=== PATIENT | male | born 1955 | race African-American/Black ===

== ENCOUNTER → 2021-07-24 | Outpatient (REF) | payer SELFPAY | END | disposition home or self-care (01) | LOC: OLS.AHA 04:22 | PROVIDERS: Referring Provider Family Medicine; Visit Provider Family Medicine | DX: E72.20 Disorder of urea cycle metabolism, unspecified (principal) | CPT/HCPCS: 82140 ==

== ENCOUNTER → 2021-10-23 | Outpatient (REF) | payer SELFPAY | END | disposition home or self-care (01) | LOC: OLS.AHA 04:22 | PROVIDERS: Visit Provider Family Medicine | DX: E72.20 Disorder of urea cycle metabolism, unspecified (principal) | CPT/HCPCS: 82140 ==

== ENCOUNTER 2023-12-25 12:55 | Inpatient (IN) | payer MEDICAID, SELFPAY ==
[2023-12-25] VITALS (10 sets, daily range): BP systolic 127–168; BP diastolic 70–100; PULSE 50–61; RESP 8–16; TEMP 35–36.6; O2SAT 92–100; BMI 24.3; BMI 23.7; BMI 21.7
--- NOTE | 2023-12-25 13:02 | ED.RN ---
DR WALL AT BEDSIDE TO EVALUATE PATIENT
--- NOTE | 2023-12-25 13:03 | EKG12_ITS ---
Test Reason : AMS Blood Pressure : / mmHG Vent. Rate : 057 BPM Atrial Rate : 057 BPM P-R Int : 152 ms QRS Dur : 082 ms QT Int : 454 ms P-R-T Axes : 043 007 037 degrees QTc Int : 441 ms Sinus bradycardia Otherwise normal ECG Confirmed by Sheldon Agee ([id number]), editor magazine SANYA LEVY ([id number]) on 12/27/2023 2:17:08 PM Referred By: IVANA Confirmed By:Sheldon Agee
--- NOTE | 2023-12-25 13:03 | RAD_ITS ---
STUDY: X-RAY CHEST REASON FOR EXAM: Male, 68 years old. Neuro deficit, acute, stroke suspected TECHNIQUE: Single AP portable view of the chest. COMPARISON: None. FINDINGS: No visualized consolidation. There are interstitial fibrotic changes of the lungs. There is no demonstrated pleural abnormality. Normal size heart. Normal mediastinum and ciera. Normal visualized pulmonary arteries. There is atherosclerotic tortuosity of the aortic arch and descending thoracic aorta. There are diffuse degenerative changes of the visualized thoracic spine. Normal visualized ribs, clavicles, and shoulders. There is no demonstrated abnormality of the visualized soft tissue structures of the upper abdomen. RAD/Chest 1 View IMPRESSION: Degenerative changes, as described above. No demonstrated acute cardiopulmonary process. Electronically Signed: Cody Olguin MD at 15:23 EDT ,
--- NOTE | 2023-12-25 13:03 | CT_ITS ---
STUDY: CT BRAIN WITHOUT CONTRAST REASON FOR EXAM: Male, 68 years old. Altered mental status. Stroke alert. TECHNIQUE: Transaxial CT imaging of the brain was performed without administration of intravenous contrast material. Individualized dose optimization techniques were used for this CT. COMPARISON: No relevant prior comparison study available FINDINGS: PARENCHYMA: There is no acute bleed or infarct. There are mild chronic ischemic changes. VENTRICLES: There is no hydrocephalus. MASTOID AIR CELLS AND PARANASAL SINUSES: The visualized paranasal sinuses are clear. The mastoid air cells are clear. BONES: There is no skull fracture. SOFT TISSUES: The visualized soft tissues are within normal limits. CT/STROKE Brain/Head without Cont IMPRESSION: No acute intracranial abnormality. Mild chronic ischemic change. N.B. : The above Results were Read Back by Shayan Bowen MD to Jasbir Melvin DO, and understanding confirmed on 12/25/2023 13:30:55 (ET). Electronically Signed: Shayan Bowen MD at 13:32 EDT ,
--- NOTE | 2023-12-25 13:04 | CT_ITS ---
STUDY: CTA HEAD AND NECK WITH CONTRAST REASON FOR EXAM: Male, 68 years old. Neuro deficit, acute, stroke suspected RADIATION DOSAGE (If Supplied By Facility): CTDIvol = ( 22.55 ) mGy, DLP = ( 1272.48 ) mGycm TECHNIQUE: CT angiography was performed with a multi-detector CT scanner. Data acquisition was obtained from the skull base through the vertex following intravenous administration of IV 100mL Isovue-370. MIP images were reconstructed from the axial data set. Post-processing of the angiographic images was performed, with multiplanar reformation and 3D reconstruction. Individualized dose optimization techniques were used for this CT. COMPARISON: Noncontrast head CT dated December 25, 2023 FINDINGS: Normal bilateral petrous carotid arteries. Normal right cavernous carotid artery with a normal supraclinoid bifurcation. There is calcified plaque formation of the left cavernous carotid artery, with a mild stenosis (less than 50%). Normal right A1 segments of the anterior cerebral artery. There is hypoplastic development of the left A1 segment of the anterior cerebral arteries with an atretic but intact artery. Normal intact anterior communicating artery (ACOM). Normal bilateral A2 segments of the anterior cerebral arteries. Normal right M1 and M2 segments of the middle cerebral arteries, with a normal M1 bifurcation. Normal left M1 and M2 segments of the middle cerebral arteries, with a normal M1 bifurcation. Normal right posterior communicating artery (PCOM). There is non-visualization of the left posterior communicating artery (PCOM). There is a small atretic left vertebral artery with a dominant right vertebral artery. There is tortuosity with elongation of the basilar artery. The visualized bilateral superior cerebellar (SCA) arteries are normal. Normal bilateral P1, P2 and visualized P3 segments of the posterior cerebral arteries. There is no demonstrated aneurysm of the [place]. There is no demonstrated thrombus or occlusion of the major intracranial arteries. No hemodynamically significant stenosis of the arteries of the [place] is demonstrated. AORTIC ARCH: Normal visualized aortic arch. Normal origins of the brachiocephalic, left common carotid, and left subclavian arteries. RIGHT CAROTID ARTERIES: Normal right common carotid artery (CCA). Normal right common carotid bulb. Normal origin of the right internal carotid (ICA) artery without a hemodynamically significant stenosis. Normal visualized cervical portion of the right internal carotid artery. Normal origin of the right external carotid artery (ECA). LEFT CAROTID ARTERIES: Normal left common carotid artery (CCA). There is mild atherosclerotic plaque formation without narrowing of the left carotid bulb. Normal origin of the left internal carotid (ICA) artery without a hemodynamically significant stenosis. Normal visualized cervical portion of the left internal carotid artery. Normal origin of the left external carotid artery (ECA). VERTEBRAL ARTERIES: There is enhancement within the bilateral vertebral arteries with a small left vertebral artery, and a dominant right vertebral artery. CT/STROKE CTA Head AND Neck W/Con IMPRESSION: 1. Head CTA: There is no demonstrated aneurysm of the [place]. There is no demonstrated thrombus or occlusion of the major intracranial arteries. No hemodynamically significant stenosis of the arteries of the [place] is demonstrated. 2. Neck CTA: Minimal atherosclerotic plaque of the left carotid bulb without luminal stenosis. The bilateral internal carotid arteries of the neck are widely patent N.B. : The above Results were Read Back by Cody Olguin MD to Jasbir Melvin DO, and understanding confirmed on 12/25/2023 13:54:23 (ET). Electronically Signed: Cody Olguin MD at 13:55 EDT ,
--- NOTE | 2023-12-25 13:07 | NURSING ---
1304 STROKE ALERT CALLED
--- NOTE | 2023-12-25 13:07 | ED.VIS.STROK ---
HPI History of Present Illness Chief Complaint: Alt LOC Detail of Chief Complaint: Altered level of consciousness Informant: EMS and SNF Narrative Narrative: Patient from a shelter facility via EMS for altered mental status. Apparently patient was last known well around 6 PM last evening. Normally talkative and awake and appropriate. Now not answering questions. Not following commands. Unable to get history from the patient. Patient has known psychiatric history such as paranoid schizophrenia. PFSH PFS Home Medications ?Medication ?Instructions ?Recorded ?Last Taken ?Type adjuvant AS01B (PF)vial 1 of 2 0.5 ml IM DAILY 12/25/23 Unknown History (Shingrix Adjuvant Component (PF) intramuscular suspension) aspirin 81 mg tablet,delayed 81 mg PO DAILY 12/25/23 Unknown History release (Adult Aspirin Regimen) atorvastatin 20 mg tablet 20 mg PO DAILY 12/25/23 Unknown History benztropine 1 mg tablet 1 mg PO BID 12/25/23 Unknown History buspirone 10 mg tablet 20 mg PO TID 12/25/23 Unknown History calcium carbonate (Calcium 500) 500 mg PO BID 12/25/23 Unknown History cholecalciferol (vitamin D3) 50 50 mcg PO DAILY 12/25/23 Unknown History mcg (2,000 unit) capsule clonazepam 2 mg tablet (Klonopin) 2 mg PO TID 12/25/23 Unknown History divalproex 125 mg tablet,delayed 125 mg PO BID 12/25/23 Unknown History release furosemide 20 mg tablet 20 mg PO DAILY 12/25/23 Unknown History haloperidol decanoate 100 mg/mL 150 mg IM Q14D 12/25/23 Unknown History intramuscular solution (Haldol Decanoate) hydroxyzine pamoate 50 mg capsule 50 mg PO TID 12/25/23 Unknown History lactulose 10 gram/15 mL oral 45 ml PO BID 12/25/23 Unknown History solution (Enulose) lisinopril 5 mg tablet 5 mg PO DAILY 12/25/23 Unknown History metformin 1,000 mg tablet 1,000 mg PO BID 12/25/23 Unknown History nabumetone 500 mg tablet 500 mg PO BID 12/25/23 Unknown History propranolol 80 mg capsule,24 80 mg PO DAILY 12/25/23 Unknown History hr,extended release trazodone 50 mg tablet 50 mg PO QHS 12/25/23 Unknown History Allergy/AdvReac Type Severity Reaction Status Date / Time tuberculin, purified protein Allergy Unknown PT UNABLE Verified 12/25/23 13:02 deriva (From Aplisol) TO RESPOND-NEEDS F/U Social History (System 07/31/20 @ 12:09 by Martín Cavanaugh) Smoking Status: Unknown if ever smoked ROS ROS ED ROS Narrative Unable to obtain review of systems from patient. Review of Systems ROS Unobtainable: due to mental condition and other Constitutional Constitutional ED: Reports lethargy; Denies chills, fever(s), sweats or weight loss Eyes Eyes: Denies blurry vision, change in vision or diplopia ENT ENT ED: Denies rhinorrhea or sore throat Cardiovascular Cardiovascular: Denies chest pain, orthopnea or racing heartbeat Respiratory/Chest Respiratory/Chest: Denies cough, dyspnea, dyspnea on exertion, orthopnea or sputum Gastrointestinal Gastrointestinal: Denies abdominal pain, diarrhea, nausea or vomiting Genitourinary Genitourinary ED: Denies dysuria, hematuria or urinary frequency Musculoskeletal Musculoskeletal: Denies arthralgias, back pain, myalgias or neck pain Integumentary Denies abscess, Abrasions or rash Neurologic Neurologic: Denies headache(s) or weakness Psychiatric Psychiatric: Denies anxiety, depression or suicidal thoughts Endocrine Endocrinology: Denies polydipsia, polyphagia or polyuria Hematologic/Lymphatic Hematologic/Lymphatic: Denies easy bleeding, easy bruising or lymphadenopathy Allergic/Immunologic Allergic/Immunologic ED: Denies mouth swelling, tongue swelling or urticaria EXAM Physical Exam Narrative Exam Narrative: Patient awake and withdraws from painful stimulus. He does not follow commands. Const Vital Signs: 12/25/23 12:56 12/25/23 13:03 12/25/23 13:13 Temperature 95.0 F L 95.0 F L Temperature Source Temporal Temporal Pulse Rate 61 61 Respiratory Rate 14 14 Blood Pressure 168/99 H 168/99 H Blood Pressure Mean 122 122 Pulse Ox 92 Oxygen Delivery Method Room Air Room Air Room Air Oxygen Flow Rate (L/min) 12/25/23 13:33 12/25/23 14:03 Temperature Temperature Source Pulse Rate 55 L 57 L Respiratory Rate 12 12 Blood Pressure 138/79 H 168/100 H Blood Pressure Mean 98 122 Pulse Ox 100 100 Oxygen Delivery Method Room Air Non-Rebreather Oxygen Flow Rate (L/min) 15 Positive well nourished and well developed General Appearance ED: well developed and NAD HEENT Reports TM's clear and moist mucous membranes normocephalic and atraumatic; Negative for trauma or tenderness Tympanic Membrane ED: Yes TM's clear Eyes PERRL and EOMs intact bilaterally Eyes Narrative: Eyes for the most part seem to deviate to the left but nursing staff did note him look to the right before my evaluation of him. General Eye ED: Negative for pale conjunctiva or scleral icterus Neck no lymphadenopathy, supple and no JVD General: Negative for tenderness Chest Wall inspection of chest normal and palpation of chest normal Chest: Negative for tenderness Resp normal respiratory effort and clear to auscultation bilaterally Effort and Inspection: Negative for respiratory distress or pain with movement Auscultation: Negative for rhonchi, wheezes or diminished lung sounds Cardio regular rate, regular rhythm, S1 normal heart sound, S2 normal heart sound and no murmurs Peripheral Pulses: pulses 2+ throughout GI normal to inspection, nondistended, normoactive bowel sounds, soft to palpation, non-tender, non-distended and no masses Back/Spine no CVA tenderness and no thoracic nor lumbar tenderness Extremity normal to inspection General Extremety ED: Negative for edema General Extremity: Negative for edema Neuro oriented x3, CN's II-XII intact bilaterally, no sensory deficits noted and gait normal Neuro Narrative: NIH stroke scale performed but difficult and received a score of 13. I do not appreciate any facial droop. He does seem to move all extremities at different times. He will not follow commands. He will withdraw from painful stimulus and will yell out which when poked with the IV. Sensorium / Orientation: awake, alert, oriented to person, oriented to place and oriented to time Motor Exam: strength 5/5 throughout and strength abnormal Psych mental status grossly normal Skin no rashes or lesions noted and no wounds MDM MDM MDM Narrative Medical decision making narrative: Patient presents with mental status change and last known well was 6 PM yesterday. On exam really not following much commands. Blood glucose was unremarkable. Patient had a stroke team called on arrival as he was really not verbalizing anything and was concerned about aphasia. Also seem to constantly be looking to the left with his eyes deviated to the left. He would look back to the right when IV start was attempted and he would yell out which. CT scan of the brain without contrast showed chronic changes no acute findings. CT of the head and neck essentially unremarkable. CBC with differential count 5.9 with hemoglobin 12 and platelet count of 143. Chemistries unremarkable. Troponin was 6. EKG obtained on arrival showed sinus rhythm with rate of 57 bpm with no acute ST segment changes. While patient was being evaluated by stroke neurologist apparently he screamed and started having seizure-like activity. We did give patient a milligram of Ativan IV and I started patient on Keppra 1000 mg IV. Depakote level was not available at that time and but did return low at 14. Patient on very low-dose Depakote which may be for behavioral issues. Discussed case with hospitalist will evaluate patient for admission for mental status change and seizure. Patient not a thrombolytic candidate as last known well was at 6 PM yesterday. Etiology of his mental status change unclear. Lab Data Attestation: I reviewed the patient's lab results. Labs: Laboratory Results - last 24 hr 12/25/23 12/25/23 13:01 13:07 WBC 5.9 RBC 4.53 L Hgb 12.3 L Hct 37.9 L MCV 83.7 MCH 27.2 MCHC 32.5 RDW Std Deviation 45.5 H RDW Coeff of Amee 15.1 H Plt Count 143 L MPV 13.5 H Immature Gran % (Auto) 0.500 Neut % (Auto) 54.8 Lymph % (Auto) 30.9 [place] % (Auto) 10.6 H Eos % (Auto) 3.0 Baso % (Auto) 0.2 Absolute Neuts (auto) 3.3 Absolute Lymphs (auto) 1.83 Nucleated RBC % 0 PT 13.6 INR 1.0 APTT 27.9 Sodium 140 Potassium 4.0 Chloride 104 Carbon Dioxide 28.0 Anion Gap 8 BUN 31 H Creatinine 1.37 H Estim Creat Clear Calc 55.07 Est GFR (MDRD) Af Amer 66 Est GFR (MDRD) Non-Af 55 L BUN/Creatinine Ratio 22.6 H Glucose 112 H Calcium 9.4 Troponin I High Sens 6 Valproic Acid 14 L POC Glucose 91 Radiography Diagnostic Testing: Clinical Impression(s) from Imaging Studies Brain CT 12/25/23 13:03 IMPRESSION: No acute intracranial abnormality. Mild chronic ischemic change. N.B. : The above Results were Read Back by Shayan Bowen MD to Remus Ungur , DO, and understanding confirmed on 12/25/2023 13:30:55 (ET). Electronically Signed: Shayan Bowen MD at 13:32 EDT , ADDENDUM: 12/25/23 1339 IMPRESSION: No acute intracranial abnormality. Mild chronic ischemic change. N.B. : The above Results were Read Back by Shayan Bowen MD to Jasbir Melvin DO, and understanding confirmed on 12/25/2023 13:30:55 (ET). Electronically Signed: Shayan Bowen MD at 13:32 EDT , Head/Neck CTA 12/25/23 13:04 IMPRESSION: 1. Head CTA: There is no demonstrated aneurysm of the [place]. There is no demonstrated thrombus or occlusion of the major intracranial arteries. No hemodynamically significant stenosis of the arteries of the [place] is demonstrated. 2. Neck CTA: Minimal atherosclerotic plaque of the left carotid bulb without luminal stenosis. The bilateral internal carotid arteries of the neck are widely patent N.B. : The above Results were Read Back by Cody Olguin MD to Jasbir Melvin DO, and understanding confirmed on 12/25/2023 13:54:23 (ET). Electronically Signed: Cody Olguin MD at 13:55 EDT , ADDENDUM: 12/25/23 1402 IMPRESSION: 1. Head CTA: There is no demonstrated aneurysm of the [place]. There is no demonstrated thrombus or occlusion of the major intracranial arteries. No hemodynamically significant stenosis of the arteries of the [place] is demonstrated. 2. Neck CTA: Minimal atherosclerotic plaque of the left carotid bulb without luminal stenosis. The bilateral internal carotid arteries of the neck are widely patent N.B. : The above Results were Read Back by Cody Olguin MD to Jasbir Melvin DO, and understanding confirmed on 12/25/2023 13:54:23 (ET). Electronically Signed: Cody Olguin MD at 13:55 EDT , 1 view chest x-ray obtained interpreted by myself as mild cardiomegaly with no evidence of infiltrate or pneumothorax or acute disease process. EKG Initial EKG: Attestation: I personally reviewed and interpreted this EKG as follows: Comments: Sinus rhythm with rate of 57 bpm with no acute ST segment changes Discharge Plan Dx/Rx/DC Orders Clinical Impression: Acute alteration in mental status, Seizure, Hx of schizophrenia Disposition Disposition: Acute Care Hospital [facility]
[2023-12-25 13:14] LABS: Absolute Lymphocyte Count 1.83 X10^3/uL (0.83-4.51); Absolute Neutrophil Count 3.3 X10^3/uL (2.0-7.7); Basophil# 0.01 X10^3/uL; Basophil% 0.2 % (0-1); Eosinophil# 0.18 X10^3/uL; Hematocrit 37.9 % (40-54); Hemoglobin 12.3 g/dL (13.0-16.5); Lymphocyte # 1.83 X10^3/ul (0.83-4.51); Lymphocyte % 30.9 % (19-41); Mean Corp Hgb Conc 32.5 g/dL (32-36); Mean Corpuscular Hgb 27.2 pg (27.0-32.0); Mean Corpuscular Volume 83.7 fL (80-94); Mean Platelet Vol. 13.5 fl (6.2-12.0); Monocyte# 0.63 X10^3/uL; Monocyte% 10.6 % (0-10); NRBC Flagged by Analyzer 0 % (0-5); Neutrophil # 3.25 X10^3/uL (2.7-7.7); Neutrophil % 54.8 % (47-70); Platelet Count 143 K/mm3 (150-450); RBC Distribution Width CV 15.1 % (11.6-14.6); RBC Distribution Width SD 45.5 fl (35.1-43.9); Red Blood Count 4.53 M/mm3 (4.6-6.2); White Blood Count 5.9 K/mm3 (4.4-11.0)
--- NOTE | 2023-12-25 13:16 | ED.RN ---
MISTI UNABLE TO COMPLETE [place] IN ROUTE D/T PT'S LOC
[2023-12-25 13:20] LABS: Bedside Glucose 91 mg/dL (74-106)
[2023-12-25 13:23] LABS: Partial Thromboplast Time 27.9 Seconds (24.1-36.2); Prothrombin Time (Protime)PT. 13.6 SECONDS (11.7-14.9)
[2023-12-25] MEDS: 0.9% Normal Saline (1000mL) 1,000 ML 100 ML IV (13:43)
--- NOTE | 2023-12-25 13:45 | ED.RN ---
THIS RN IN ROOM WITH PATIENT, [facility] TELE NEURO DOC ON [place] ASSESSING PATIENT, SEIZURE ACTIVITY NOTED. THIS RN NOTIFIED DR WALL & HE CAME TO ROOM, ORDERED IV ATIVAN, PLACED PT ON NRB AT SPO2 IN 50'S. SEIZURE LASTED APPROX 1 MINUTE.
[2023-12-25 13:46] LABS: Anion Gap 8 (5-15); BUN 31 mg/dL (7-18); BUN/Creat Ratio 22.6 RATIO (10-20); Calcium,Total 9.4 mg/dL (8.5-10.1); Chloride 104 mmol/L (98-107); Creatinine, Serum 1.37 mg/dL (0.70-1.30); EST Glomerular Filtration Rate 55 mL/min (>60); Est Glom Filt Rate - Afr Amer 66 mL/min (>60); Estimated Creatinine Clearance 55.07 ml/min; Glucose 112 mg/dL (74-106); Sodium Level 140 mmol/L (136-145); Troponin-I HS 6 pg/mL (3.0-78.0)
[2023-12-25] MEDS: LORazepam 2 MG/ML Syringe 1 MG IV (13:47)
[2023-12-25] MEDS: levETIRAcetam IV 1,000 MG/100 ML BAG 400 MG IV (14:01)
[2023-12-25 14:06] LABS: Valproic Acid (Depakene) Level 14 ug/mL (50-100)
--- NOTE | 2023-12-25 14:25 | NURSING ---
PCU BEST ALTERED MENTAL STATUS, SEIZURE
--- NOTE | 2023-12-25 14:35 | CM.ED ---
Social Work: Date of referral: 12/25/23 Reason for referral: Stroke Alert Referred by: Social Work Identification group care worker attempted visit with patient however patient sleeping and unable to be aroused by social scientist, nurse or doctor. group care worker unable to offer support. Chastity Smith, PATIENT CARE TECHNICIAN INSTRUCTOR, INDUCTION HEAT TREATER
--- NOTE | 2023-12-25 14:38 | ED.RN ---
THIS RN ATTEMPED TO CALL [facility]. LEFT MESSAGE TO CALL US BACK TO OBTAIN CONSENT TO TREAT.
--- NOTE | 2023-12-25 14:57 | HP.PCM.HOS_ITS ---
HPI - General General Date of Admission: 12/25/23 Date of Service: 12/25/23 Chief Complaint: Alt LOC HPI Narrative MARIA FERNANDA VEGA, is a 68-year-old male with history of schizophrenia who presented to [facility] ED 12/25/2023 from SNF for altered level of consciousness. Last known well at 6 PM yesterday evening. Normally is awake and appropriate and talkative however now not following commands or answering questions. Patient had CT head and CTA with no acute process. Lab workup and vitals fairly unremarkable aside from creatinine of 1.37 with no known baseline so hospitalist contacted for admission for altered level consciousness and CVA rule out. Patient evaluated at bedside and unable to answer any questions, initially was not following commands or moving to sternal rub on my exam however ED physician reevaluated patient did squeeze hand and open eyes to sternal rub. History as above, no family or staff at bedside, unable to obtain further history at this time. PFSH Home Medications ?Medication ?Instructions ?Recorded ?Last Taken ?Type adjuvant AS01B (PF)vial 1 of 2 0.5 ml IM DAILY 12/25/23 Unknown History (Shingrix Adjuvant Component (PF) intramuscular suspension) aspirin 81 mg tablet,delayed 81 mg PO DAILY 12/25/23 Unknown History release (Adult Aspirin Regimen) atorvastatin 20 mg tablet 20 mg PO DAILY 12/25/23 Unknown History benztropine 1 mg tablet 1 mg PO BID 12/25/23 Unknown History buspirone 10 mg tablet 20 mg PO TID 12/25/23 Unknown History calcium carbonate (Calcium 500) 500 mg PO BID 12/25/23 Unknown History cholecalciferol (vitamin D3) 50 50 mcg PO DAILY 12/25/23 Unknown History mcg (2,000 unit) capsule clonazepam 2 mg tablet (Klonopin) 2 mg PO TID 12/25/23 Unknown History divalproex 125 mg tablet,delayed 125 mg PO BID 12/25/23 Unknown History release furosemide 20 mg tablet 20 mg PO DAILY 12/25/23 Unknown History haloperidol decanoate 100 mg/mL 150 mg IM Q14D 12/25/23 Unknown History intramuscular solution (Haldol Decanoate) hydroxyzine pamoate 50 mg capsule 50 mg PO TID 12/25/23 Unknown History lactulose 10 gram/15 mL oral 45 ml PO BID 12/25/23 Unknown History solution (Enulose) lisinopril 5 mg tablet 5 mg PO DAILY 12/25/23 Unknown History metformin 1,000 mg tablet 1,000 mg PO BID 12/25/23 Unknown History nabumetone 500 mg tablet 500 mg PO BID 12/25/23 Unknown History propranolol 80 mg capsule,24 80 mg PO DAILY 12/25/23 Unknown History hr,extended release trazodone 50 mg tablet 50 mg PO QHS 12/25/23 Unknown History Allergy/AdvReac Type Severity Reaction Status Date / Time tuberculin, purified protein Allergy Unknown PT UNABLE Verified 12/25/23 13:02 deriva (From Aplisol) TO RESPOND-NEEDS F/U Social History (System 07/31/20 @ 12:09 by Martín Cavanaugh) Smoking Status: Unknown if ever smoked ROS ROS Narrative Unable to obtain secondary to mental status Vital Signs Vital Signs Vital Signs: 12/25/23 12:56 12/25/23 13:03 12/25/23 13:13 Temperature 95.0 F L 95.0 F L Temperature Source Temporal Temporal Pulse Rate 61 61 Respiratory Rate 14 14 Blood Pressure 168/99 H 168/99 H Blood Pressure Mean 122 122 Pulse Ox 92 Oxygen Delivery Method Room Air Room Air Room Air Oxygen Flow Rate (L/min) 12/25/23 13:33 12/25/23 14:03 12/25/23 14:30 Temperature Temperature Source Pulse Rate 55 L 57 L 54 L Respiratory Rate 12 12 12 Blood Pressure 138/79 H 168/100 H 158/91 H Blood Pressure Mean 98 122 113 Pulse Ox 100 100 99 Oxygen Delivery Method Room Air Non-Rebreather Room Air Oxygen Flow Rate (L/min) 15 12/25/23 14:30 12/25/23 14:40 Temperature 96.1 F L Temperature Source Pulse Rate 54 L 54 L Respiratory Rate 12 13 Blood Pressure 158/91 H 146/81 H Blood Pressure Mean 108 102 Pulse Ox 99 99 Oxygen Delivery Method Oxygen Flow Rate (L/min) Weight Weight: 79.379 kg Body Mass Index (BMI) 23.7 Physical Exam Narrative General: Patient tired, did squeeze hand and open eyes for ED provider but did not verbally answer questions, is protecting airway HEENT: Atraumatic, normocephalic Eyes: Anicteric, normal conjunctiva, extraocular movements grossly intact Neck: Supple Respiratory: Clear to auscultation bilaterally, normal respiratory effort Cardiovascular: Regular rate and rhythm GI: Soft, nondistended Extremities: No edema Musculoskeletal: Patient squeeze right hand and move slightly in bed Neuro: Unable to thoroughly assess neuro due to mental status, pupils equal Skin: No rashes appreciated Psych: Unable to cooperate due to mental status Results Lab / Micro Data 12/25/23 13:07 12/25/23 13:07 Labs: Laboratory Results - last 24 hr 12/25/23 13:01: POC Glucose 91 12/25/23 13:07: WBC 5.9, RBC 4.53 L, Hgb 12.3 L, Hct 37.9 L, MCV 83.7, MCH 27.2, MCHC 32.5, RDW Std Deviation 45.5 H, RDW Coeff of Amee 15.1 H, Plt Count 143 L, M PV 13.5 H, Immature Gran % (Auto) 0.500, Neut % (Auto) 54.8, Lymph % (Auto) 30.9, [place] % (Auto) 10.6 H, Eos % (Auto) 3.0, Baso % (Auto) 0.2, Absolute Neuts (auto) 3.3, Absolute Lymphs (auto) 1.83, Nucleated RBC % 0, PT 13.6, INR 1.0, APTT 27.9, Sodium 140, Potassium 4.0, Chloride 104, Carbon Dioxide 28.0, Anion Gap 8, BUN 31 H, Creatinine 1.37 H, Estim Creat Clear Calc 55.07, Est GFR (MDRD) Af Amer 66, Est GFR (MDRD) Non-Af 55 L, BUN/Creatinine Ratio 22.6 H, Glucose 112 H, Calcium 9.4, Troponin I High Sens 6, Valproic Acid 14 L Imaging Radiology Impression Brain CT 12/25/23 13:03 IMPRESSION: No acute intracranial abnormality. Mild chronic ischemic change. N.B. : The above Results were Read Back by Shayan Bowen MD to Jasbir Melvin DO, and understanding confirmed on 12/25/2023 13:30:55 (ET). Electronically Signed: Shayan Bowen MD at 13:32 EDT , ADDENDUM: 12/25/23 1339 IMPRESSION: No acute intracranial abnormality. Mild chronic ischemic change. N.B. : The above Results were Read Back by Shayan Bowen MD to Jasbir Melvin DO, and understanding confirmed on 12/25/2023 13:30:55 (ET). Electronically Signed: Shayan Bowen MD at 13:32 EDT , Head/Neck CTA 12/25/23 13:04 IMPRESSION: 1. Head CTA: There is no demonstrated aneurysm of the [place]. There is no demonstrated thrombus or occlusion of the major intracranial arteries. No hemodynamically significant stenosis of the arteries of the [place] is demonstrated. 2. Neck CTA: Minimal atherosclerotic plaque of the left carotid bulb without luminal stenosis. The bilateral internal carotid arteries of the neck are widely patent N.B. : The above Results were Read Back by Cody Olguin MD to Jasbir Melvin DO, and understanding confirmed on 12/25/2023 13:54:23 (ET). Electronically Signed: Cody Olguin MD at 13:55 EDT , ADDENDUM: 12/25/23 1402 IMPRESSION: 1. Head CTA: There is no demonstrated aneurysm of the [place]. There is no demonstrated thrombus or occlusion of the major intracranial arteries. No hemodynamically significant stenosis of the arteries of the [place] is demonstrated. 2. Neck CTA: Minimal atherosclerotic plaque of the left carotid bulb without luminal stenosis. The bilateral internal carotid arteries of the neck are widely patent N.B. : The above Results were Read Back by Cody Olguin MD to Jasbir Melvin DO, and understanding confirmed on 12/25/2023 13:54:23 (ET). Electronically Signed: Cody Olguin MD at 13:55 EDT Reading Location ID and State: [facility] / [place] , Service support , Assessment & Plan Assessment/Plan (1) Acute alteration in mental status: (2) Hx of schizophrenia: (3) Seizure: PLAN: Plan # Altered mental status, concern for CVA -Admit to tele -CT head w/ no acute changes -CTA head and neck no LVO -Evaluated by stroke neurologist in ED and recommended workup for further stroke evaluation -MRI ordered -NIH q4hr -asa, statin -Echo w/ bubble study -PT/OT/Speech eval -Hold BP medications to allow for permissive hypertension for 24 hours unless SBP greater than 220 or DBP greater than 120 or until stroke is ruled out #Altered LOC -There is concern for CVA however patient has other possible reasons to have altered mental status -Lab workup fairly benign thus far, given patient is on Depakote we will check ammonia and liver panel -Check ABG -At present suspect patient is postictal, certainly possible that patient had unwitnessed seizure overnight and had been postictal causing his altered mental status, treating seizure disorder -Will check TSH -Will check UA -Will try to continue most of patient's home medications however may be difficult given mental status and most cannot be converted to IV -Will hold hydroxyzine until patient more awake, will also hold trazodone #Epilepsy with seizure in ED -Seizure in ED witnessed by teleneurologist -Advised Ativan IV x 1 and Keppra load which were both done and seizure promptly broke -Based on patient's records he has history of epilepsy however is only on small dose twice daily of Depakote and level is only 14 -Unclear if Klonopin is for seizure disorder or behavioral -Will continue IV Keppra -Seizure precautions -Ativan as needed -EEG ordered -Teleneurology #BELKIS vs CKD IIIb -No baseline, creatinine 1.37 -Receiving IV fluids # Schizophrenia by history --Will try to continue most of patient's home medications however may be difficult given mental status and most cannot be converted to IV -Will hold hydroxyzine until patient more awake, will also hold trazodone #Type 2 diabetes mellitus -Glucose checks and sliding scale insulin #DVT ppx: SCDs Nicole Jeter MD Time spent in the patient's overall evaluation,decision-making process, review of diagnostic data, adjustment of management, discussion with other providers, nursing nursing and ancillary staff involved in patient's care documentation, 57 minutes Charges/Coding Visit Charges Inpatient E&M: 85538 Init Hosp L2
[2023-12-25 17:19] LABS: AST(SGOT) 20 U/L (15-37); Alanine Aminotransfer ALT/SGPT 36 U/L (16-61); Albumin, Serum 3.4 g/dL (3.2-5.0); Alkaline Phosphatase 206 U/L (45-117); Bilirubin, Direct 0.11 mg/dL (0.00-0.30); Globulin 4.4 g/dL (2.2-4.2); Protein, Total 7.8 g/dL (6.4-8.2)
[2023-12-25 18:19] LABS: Bedside Glucose 105 mg/dL (74-106)
--- NOTE | 2023-12-25 20:33 | NURSING ---
12/25/23@1600- pt became combative and resistant to any type of care. security at bedside while attempting to secure piv.
--- NOTE | 2023-12-25 22:00 | NURSING ---
Pt very resistive to care at this time. Pt curled up on left side with arms tucked near chest. Pulled up in bed. Pt turned back to left side. When attempts made to place patient on back, pt strongly pulls arms inward. Pt did get agitated and yell out incomprehensible sounds. Unable to complete NIHSS at this time as pt is not following commands.
[2023-12-25] MEDS: levETIRAcetam IV 500 MG in 0.9% Normal Saline (100mL Bag) 100 ML 420 MG IV (22:15)
--- NOTE | 2023-12-25 23:22 | NURSING ---
Pt resistive to care, agitated, and yelling, leave me alone. Unable to perform an accurate NIH. Patient scored a 16, with a previous score of 12. Notified MD of change, and stated that stroke alert is not necessary at this time, as patient does not have any new focal deficits.
[2023-12-26] VITALS (11 sets, daily range): BP systolic 130–182; BP diastolic 64–98; PULSE 50–61; RESP 10–23; TEMP 35.4–36.8; O2SAT 98–100; BMI 23.7; BMI 21.7
--- NOTE | 2023-12-26 00:33 | PN.HOSP_ITS ---
Hospitalist Note Rapid response team was called due to a seizure. Patient had witnessed tonic- clonic activity by nursing. By the time I arrived that was no longer the case, however, he was very confused. Patient then started to become more agitated. Appears to be moving all his extremities spontaneously. Prior to the seizure, he had not received his levetiracetam. Patient is already on seizure precautions with as needed lorazepam. Additional seizure workup has already been ordered. No new orders at present.
[2023-12-26 00:44] LABS: Bedside Glucose 83 mg/dL (74-106)
[2023-12-26 06:31] LABS: Absolute Lymphocyte Count 0.86 X10^3/uL (0.83-4.51); Absolute Neutrophil Count 3.2 X10^3/uL (2.0-7.7); Basophil# 0.02 X10^3/uL; Basophil% 0.4 % (0-1); Eosinophil# 0.19 X10^3/uL; Hematocrit 32.9 % (40-54); Hemoglobin 10.9 g/dL (13.0-16.5); Lymphocyte # 0.86 X10^3/ul (0.83-4.51); Mean Corp Hgb Conc 33.1 g/dL (32-36); Mean Corpuscular Hgb 27.2 pg (27.0-32.0); Mean Platelet Vol. 13.9 fl (6.2-12.0); Monocyte# 0.54 X10^3/uL; Monocyte% 11.3 % (0-10); NRBC Flagged by Analyzer 0 % (0-5); Neutrophil # 3.16 X10^3/uL (2.7-7.7); Neutrophil % 65.9 % (47-70); Platelet Count 129 K/mm3 (150-450); RBC Distribution Width CV 14.7 % (11.6-14.6); RBC Distribution Width SD 43.2 fl (35.1-43.9); Red Blood Count 4.01 M/mm3 (4.6-6.2); White Blood Count 4.8 K/mm3 (4.4-11.0)
[2023-12-26 06:40] LABS: Bedside Glucose 105 mg/dL (74-106)
[2023-12-26 06:46] LABS: ALB/GLOB Ratio 0.8 RATIO (0.9-2.4); AST(SGOT) 22 U/L (15-37); Alanine Aminotransfer ALT/SGPT 29 U/L (16-61); Albumin, Serum 2.9 g/dL (3.2-5.0); Alkaline Phosphatase 185 U/L (45-117); Anion Gap 5 (5-15); BUN 24 mg/dL (7-18); BUN/Creat Ratio 25.6 RATIO (10-20); Calcium,Total 8.7 mg/dL (8.5-10.1); Chloride 107 mmol/L (98-107); Cholesterol 110 mg/dL (200); Creatinine, Serum 0.94 mg/dL (0.70-1.30); EST Glomerular Filtration Rate 85 mL/min (>60); Est Glom Filt Rate - Afr Amer 102 mL/min (>60); Globulin 3.7 g/dL (2.2-4.2); Glucose 114 mg/dL (74-106); High Density Lipoprotein 40 mg/dL; Magnesium 1.6 mg/dL (1.6-2.6); Potassium 3.7 mmol/L (3.5-5.1); Protein, Total 6.6 g/dL (6.4-8.2); Sodium Level 140 mmol/L (136-145); Thyroid Stim Hormone (TSH) 8.74 uIU/mL (0.358-3.74); Triglycerides 62 mg/dL; Very Low Density Lipoprotein 12 mg/dL (5-40)
[2023-12-26 07:30] LABS: Hemoglobin A1c 5.7 % (3.8-5.6)
--- NOTE | 2023-12-26 08:10 | NURSING ---
12/26/23@[address] [place] [address] CLINICAL CONSULTANT reported possible seizure-like activity. when entering room pt was laying in bed with no active signs of seizure. vss. bs 103. pt not following commands, eyes open, moaning with garbled speech. pt also smells like he solid himself with urine. will notify md and continue to follow.
--- NOTE | 2023-12-26 08:11 | PN.HOSP_ITS ---
Reason for Visit Reason for Visit: Diagnoses Altered mental status, unspecified (12/25/23) Unspecified convulsions (12/25/23) Personal history of other mental and behavioral disorders (12/25/23) Subjective Subjective Patient is a 68-year-old gentleman with history of schizophrenia currently resident is extended care facility was brought in to the emergency department with altered mental status. Patient has experienced multiple seizures following his admission. Objective Data Objective Data Vital Signs: Vital Signs Temp Pulse Resp BP Pulse Ox O2 Del Method O2 Flow Rate 97.1 F L 61 14 182/85 H 100 Room Air 15 12/26/23 08:09 12/26/23 08:09 12/26/23 08:09 12/26/23 08:09 12/26/23 08:09 12/26/23 08:09 12/25/23 14:03 Oxygen Flow Rate (L/min) 15 Oxygen Delivery Method Room Air Weight: 72.8 kg Body Mass Index (BMI) 21.7 Intake & Output: Intake and Output for Last 24 Hours 12/24/23 12/25/23 12/26/23 23:59 23:59 23:59 Intake Total 1205 / 1205 Output Total 750 / 750 0 / 0 Balance 455 / 455 0 / 0 Lab / Micro Data 12/26/23 05:42 12/26/23 05:42 Labs: Laboratory Results - last 24 hr 12/25/23 13:01: POC Glucose 91 12/25/23 13:07: WBC 5.9, RBC 4.53 L, Hgb 12.3 L, Hct 37.9 L, MCV 83.7, MCH 27.2, MCHC 32.5, RDW Std Deviation 45.5 H, RDW Coeff of Amee 15.1 H, Plt Count 143 L, M PV 13.5 H, Immature Gran % (Auto) 0.500, Neut % (Auto) 54.8, Lymph % (Auto) 30.9, [place] % (Auto) 10.6 H, Eos % (Auto) 3.0, Baso % (Auto) 0.2, Absolute Neuts (auto) 3.3, Absolute Lymphs (auto) 1.83, Nucleated RBC % 0, PT 13.6, INR 1.0, APTT 27.9, Sodium 140, Potassium 4.0, Chloride 104, Carbon Dioxide 28.0, Anion Gap 8, BUN 31 H, Creatinine 1.37 H, Estim Creat Clear Calc 55.07, Est GFR (MDRD) Af Amer 66, Est GFR (MDRD) Non-Af 55 L, BUN/Creatinine Ratio 22.6 H, Glucose 112 H, Calcium 9.4, Total Bilirubin 0.40, Direct Bilirubin 0.11, AST 20, ALT 36, A lkaline Phosphatase 206 H, Troponin I High Sens 6, Total Protein 7.8, Albumin 3.4, Globulin 4.4 H, Valproic Acid 14 L 12/25/23 14:35: Ammonia 19.0 12/25/23 18:00: POC Glucose 105 12/25/23 23:51: POC Glucose 83 12/26/23 05:42: WBC 4.8, RBC 4.01 L, Hgb 10.9 L, Hct 32.9 L, MCV 82.0, MCH 27.2, MCHC 33.1, RDW Std Deviation 43.2, RDW Coeff of Amee 14.7 H, Plt Count 129 L, MPV 13.9 H, Immature Gran % (Auto) 0.400, Neut % (Auto) 65.9, Lymph % (Auto) 18.0 L, [place] % (Auto) 11.3 H, Eos % (Auto) 4.0, Baso % (Auto) 0.4, Absolute Neuts (auto) 3.2, Absolute Lymphs (auto) 0.86, Nucleated RBC % 0, Sodium 140, Potassium 3.7, Chloride 107, Carbon Dioxide 28.0, Anion Gap 5, BUN 24 H, Creatinine 0.94, Estim Creat Clear Calc 75.30, Est GFR (MDRD) Af Amer 102, Est GFR (MDRD) Non-Af 85, B UN/Creatinine Ratio 25.6 H, Glucose 114 H, Hemoglobin A1c 5.7 H, Calcium 8.7, Magnesium 1.6, Total Bilirubin 0.30, AST 22, ALT 29, Alkaline Phosphatase 185 H, Total Protein 6.6, Albumin 2.9 L, Globulin 3.7, Albumin/Globulin Ratio 0.8 L, Triglycerides 62, Cholesterol 110, LDL Cholesterol 58, VLDL Cholesterol 12, HDL Cholesterol 40, TSH 8.74 H 12/26/23 05:54: POC Glucose 105 Radiography Diagnostic Testing: Radiology Impression Brain CT 12/25/23 13:03 IMPRESSION: No acute intracranial abnormality. Mild chronic ischemic change. N.B. : The above Results were Read Back by Shayan Bowen MD to Jasbir Melvin DO, and understanding confirmed on 12/25/2023 13:30:55 (ET). Electronically Signed: Shayan Bowen MD at 13:32 EDT , ADDENDUM: 12/25/23 1339 IMPRESSION: No acute intracranial abnormality. Mild chronic ischemic change. N.B. : The above Results were Read Back by Shayan Bowen MD to Jasbir Melvin DO, and understanding confirmed on 12/25/2023 13:30:55 (ET). Electronically Signed: Shayan Bowen MD at 13:32 EDT , Chest X-Ray 12/25/23 13:03 IMPRESSION: Degenerative changes, as described above. No demonstrated acute cardiopulmonary process. Electronically Signed: Cody Olguin MD at 15:23 EDT , Head/Neck CTA 12/25/23 13:04 IMPRESSION: 1. Head CTA: There is no demonstrated aneurysm of the [place]. There is no demonstrated thrombus or occlusion of the major intracranial arteries. No hemodynamically significant stenosis of the arteries of the [place] is demonstrated. 2. Neck CTA: Minimal atherosclerotic plaque of the left carotid bulb without luminal stenosis. The bilateral internal carotid arteries of the neck are widely patent N.B. : The above Results were Read Back by Cody Olguin MD to Jasbir Melvin DO, and understanding confirmed on 12/25/2023 13:54:23 (ET). Electronically Signed: Cody Olguin MD at 13:55 EDT , ADDENDUM: 12/25/23 1402 IMPRESSION: 1. Head CTA: There is no demonstrated aneurysm of the [place]. There is no demonstrated thrombus or occlusion of the major intracranial arteries. No hemodynamically significant stenosis of the arteries of the [place] is demonstrated. 2. Neck CTA: Minimal atherosclerotic plaque of the left carotid bulb without luminal stenosis. The bilateral internal carotid arteries of the neck are widely patent N.B. : The above Results were Read Back by Cody Olguin MD to Jasbir Melvin DO, and understanding confirmed on 12/25/2023 13:54:23 (ET). Electronically Signed: Cody Olguin MD at 13:55 EDT , Physical Exam Narrative GENERAL: Lethargic but arousable HEENT: Atraumatic; normocephalic EYES; Anicteric, Normal Conjunctiva NECK; supple, normal thyroid, RESPIRATORY: Diminished to auscultation CARDIOVASCULAR: Regular S1 S2, GI: soft, normoactive bowel sounds, : No Renal angle tenderness; EXTREMITIES: No edema, no clubbing, MUSCULOSKELETAL: no muscle wasting NEURO: no lateralizing signs. SKIN: No Rash Assessment & Plan Assessment/Plan (1) Acute alteration in mental status: (2) Hx of schizophrenia: (3) Seizure: PLAN: Plan Patient is a 68-year-old gentleman with history of schizophrenia currently resident is extended care facility was brought in to the emergency department with altered mental status. Patient has experienced multiple seizures following his admission. 1. Acute encephalopathy ?secondary to postictal state from status epilepticus 2. Status epilepticus ? Patient loaded with Keppra and lorazepam transferred to the intensive care unit Case discussed with Dr. Andree Rodriguez IST teleneurology. Patient will be transferred to [facility] pending bed availability. We also did discuss about having low threshold for intubation 3. Acute kidney injury ? Creatinine on admission was 1.37 improved with rehydration to 0.94 4. Diabetes mellitus type 2 ? Patient metformin held given impaired kidney function 5. Schizophrenia ? Discontinued patient psychotropic medications 6. Essential hypertension ? Patient is on lisinopril held given impaired kidney function 7. DVT prophylaxis ? Bilateral SCDs Critical time spent in the patient's overall evaluation,decision-making process, review of diagnostic data, adjustment of management, discussion with other providers, nursing nursing and ancillary staff involved in patient's care documentation, 80 Minutes Charges/Coding Multi Select Codes Hospitalists' Procedures Procedures: 33568 Critical Care 1st Hr and 38008 Critical Care Addl 30 Min
[2023-12-26] MEDS: levETIRAcetam IV 1,000 MG/100 ML BAG 400 MG IV (08:19)
[2023-12-26] MEDS: 0.9% Saline Lock 10 ML Syringe IV (08:48)
--- NOTE | 2023-12-26 09:17 | NURSING ---
12/26/23@0825- pt soiled himself from previous seizure around 0800. during pt care pt had another tonic clonic seizure at 0825 that last about 30 secs. pt was put on 2L, suction set up, and placed on left side. pt was then postictal. at 0845 pt had another tonic clonic seizure, pt was then postictal. this nurse was getting ready to give 1 mg of IV ativan but RT arrived to perform bedside EEG. Dr. vEans notified, decision to hold ativan until EEG completed. at 0910 pt had another tonic clonic seizure while EEG testing was being set up, pt was then postictal. at 0920 Dr. Evans witnessed pt having a seizure with EEG in progress. Dr. Evans wants stat tele neuro c/s and to tx pt. nelli AVILA, charge nurse updated and notified to initiate call for stat tele neuro c/s. eeg has to be completed before pt can tx per Dr. Evans. Will continue to monitor.
[2023-12-26 09:33] LABS: Bedside Glucose 103 mg/dL (74-106)
--- NOTE | 2023-12-26 09:34 | NURSING ---
12/26/23@0930- Dr. Evans updated pts legal guardian, Miguel Bryson, of poc and pt status. verbal consent obtained for tx via phone by Sudha AVILA and rommel RN. at 0936- tele neuro called back, Dr. Evans on phone now. tele neuro robot in pt room. will continue to monitor, EEG still in progress.
[2023-12-26] MEDS: NORMAL SALINE 0.9% IV (10:28)
[2023-12-26] MEDS: LEVETIRACETAM IV (10:28)
--- NOTE | 2023-12-26 10:32 | NURSING ---
12/26/23@0950- tele neuro not seeing pt. tx process in motion. at 1003, RT had just finished EEG and pt had another seizure. no seizures able to be captured on EEG, pt had seizure right after EEG leads were taken off. new orders received from tele neuro by Dr. Evans. waiting for medication from pharmacy. at 1025 medication received and [facility] transfer [facility] RN, Niki @[phone] updated. will continue to monitor for seizures and update [facility] tx RN.
--- NOTE | 2023-12-26 10:46 | NEURO.CONS ---
Assessment and Plan: Neuro Assessment/Plan Maria Fernanda Denis is a 68 y.o. male with history of schizophrenia, major depressive disorder, bipolar disorder, anxiety, and dementia with behavioral distubances, HTN, HLD, PVD, iron deficiency anemia, COPD, T2DM, vitamin D deficiency, CKD, hypothyroidism, osteoarthritis and history of alcohol use disorder, who presents with seizures. Seizures could be secondary to epilepsy resulting from neurodegenerative condition, stroke, infection, less likely autoimmune. Given patient with new onset seizure and appears to have subclinical events or silently clinical events, recommend transfer to cEEG at this time as he meets clinical criteria for status epilepticus Plan: - was given 1500mg Keppra load in ED, please complete load with 3000mg Keppra - recommend 2mg Ativan now while waiting on Keppra to come to bedside - if any additional clinical events, please provide Ativan 2mg for each event - low threshold to intubate Transfer to [facility] for the following reasons: cEEG, status epilepticus I personally attended this patient and spent a total time of 60 minutes evaluating this patient including clinical assessment, review of chart, medical history imaging, and determining appropriate treatment and workup. HPI Consult Data Date of Consult: 02/10/24 HPI Narrative HPI Narrative: Per chart review from OSH: brought in for loss of consciousness. Baseline per primary team who talked to SNF, is that at baseline patient is confused and at times agitated/ combative and also refuses to eat occasionally too however patient is able to converse. Patient is wheelchair bound and incontinent but able to feed himself at baseline. Initially seen as telestroke alert, during evaluation had GTC and was loaded with keppra 1g and given ativan [address], CTA unrevealing. He had at least additional 3 more GTC seizures, and while in the room with him he had R gaze deviation and head turn intermittently with waxing waning responsiveness concerning for seizure Has had 3-4 sz, one only visible on EEG. This is in addition to the sz he had with telestroke, only been given 1500mg total KEppra since last night [facility] Medical History Epilepsy Cerebral atherosclerosis Sleep disorder Arthritis HTN (hypertension) Liver disease Diabetes Anxiety CHF (congestive heart failure) Seizure disorder Calcium deficiency Parkinson disease High cholesterol History of shingles Paranoid schizophrenia, chronic condition Home Medications ?Medication ?Instructions ?Recorded ?Last Taken ?Type benztropine 1 mg tablet 0.5 mg PO BID 12/25/23 Unknown History clonazepam 2 mg tablet (Klonopin) 2 mg PO TID 12/25/23 Unknown History divalproex 125 mg capsule,delayed 125 mg PO TID 02/09/24 Unknown History release sprinkle ipratropium 0.5 mg-albuterol 3 mg 3 ml inhalation Q6H PRN sob 02/09/24 Unknown History (2.5 mg base)/3 mL nebulization soln levetiracetam 100 mg/mL oral 1,500 mg PO Q12H 02/09/24 Unknown History solution lorazepam 2 mg/mL oral concentrate 0.5 mg PO Q2H PRN seizures or 02/09/24 Unknown History anxiety Allergy/AdvReac Type Severity Reaction Status Date / Time tuberculin, purified protein Allergy Unknown PT UNABLE Verified 02/09/24 15:05 deriva (From Aplisol) TO RESPOND-NEEDS F/U Social History Smoking Status: Unknown if ever smoked Vital Signs Vital Signs Vital Signs: 12/25/23 12:56 12/25/23 13:03 12/25/23 13:13 Temperature 95.0 F L 95.0 F L Temperature Source Temporal Temporal Pulse Rate 61 61 Respiratory Rate 14 14 Respiratory Effort Respiratory Depth Respiratory Pattern Blood Pressure 168/99 H 168/99 H Blood Pressure Mean 122 122 Blood Pressure Source Blood Pressure Position Blood Pressure Location Pulse Ox 92 Oxygen Delivery Method Room Air Room Air Room Air Oxygen Flow Rate (L/min) 12/25/23 13:33 12/25/23 14:03 12/25/23 14:30 Temperature Temperature Source Pulse Rate 55 L 57 L 54 L Respiratory Rate 12 12 12 Respiratory Effort Respiratory Depth Respiratory Pattern Blood Pressure 138/79 H 168/100 H 158/91 H Blood Pressure Mean 98 122 113 Blood Pressure Source Blood Pressure Position Blood Pressure Location Pulse Ox 100 100 99 Oxygen Delivery Method Room Air Non-Rebreather Room Air Oxygen Flow Rate (L/min) 15 12/25/23 14:30 12/25/23 14:40 12/25/23 15:00 Temperature 96.1 F L Temperature Source Pulse Rate 54 L 54 L 53 L Respiratory Rate 12 13 16 Respiratory Effort Respiratory Depth Respiratory Pattern Blood Pressure 158/91 H 146/81 H 137/83 H Blood Pressure Mean 108 102 101 Blood Pressure Source Blood Pressure Position Blood Pressure Location Pulse Ox 99 99 98 Oxygen Delivery Method Room Air Oxygen Flow Rate (L/min) 12/25/23 16:00 12/25/23 16:00 12/25/23 21:31 Temperature 97.9 F 97.9 F 95.2 F L Temperature Source Temporal Temporal Temporal Pulse Rate 54 L 54 L 50 L Respiratory Rate 16 16 8 L Respiratory Effort Respiratory Depth Respiratory Pattern Blood Pressure 130/99 H 130/99 H 127/76 H Blood Pressure Mean 109 109 93 Blood Pressure Source Monitor Monitor Monitor Blood Pressure Position Semi-Fowlers Semi-Fowlers Left Lateral Blood Pressure Location Left Arm Left Arm Right Arm Pulse Ox 99 99 100 Oxygen Delivery Method Room Air Room Air Room Air Oxygen Flow Rate (L/min) 12/25/23 22:30 12/25/23 23:30 12/26/23 00:56 Temperature 95.8 F L 95.8 F L Temperature Source Temporal Temporal Pulse Rate 50 L 53 L Respiratory Rate 10 L 10 L Respiratory Effort Normal Respiratory Depth Normal Respiratory Pattern Bradypnea Blood Pressure 144/70 H 137/66 H Blood Pressure Mean 94 89 Blood Pressure Source Monitor Monitor Blood Pressure Position Semi-Fowlers Semi-Fowlers Blood Pressure Location Right Arm Right Arm Pulse Ox 100 100 Oxygen Delivery Method Room Air Room Air Room Air Oxygen Flow Rate (L/min) 12/26/23 01:34 12/26/23 03:24 12/26/23 03:26 Temperature 96.1 F L 96.6 F L Temperature Source Temporal Temporal Pulse Rate 53 L 50 L Respiratory Rate 10 L 10 L Respiratory Effort Normal Respiratory Depth Normal Respiratory Pattern Tachypnea Blood Pressure 142/65 H 156/73 H Blood Pressure Mean 90 100 Blood Pressure Source Monitor Monitor Blood Pressure Position Semi-Fowlers Semi-Fowlers Blood Pressure Location Right Arm Right Arm Pulse Ox 99 100 Oxygen Delivery Method Room Air Room Air Room Air Oxygen Flow Rate (L/min) 12/26/23 06:15 12/26/23 06:55 12/26/23 08:09 Temperature 97.1 F L 97.1 F L Temperature Source Temporal Temporal Pulse Rate 61 61 Respiratory Rate 10 L 14 Respiratory Effort Respiratory Depth Respiratory Pattern Blood Pressure 158/82 H 182/85 H Blood Pressure Mean 107 117 Blood Pressure Source Monitor Monitor Blood Pressure Position Semi-Fowlers Semi-Fowlers Blood Pressure Location Right Arm Right Arm Pulse Ox 98 100 Oxygen Delivery Method Room Air Room Air Room Air Oxygen Flow Rate (L/min) 12/26/23 08:21 Temperature Temperature Source Pulse Rate Respiratory Rate Respiratory Effort Respiratory Depth Respiratory Pattern Blood Pressure 172/92 H Blood Pressure Mean 118 Blood Pressure Source Monitor Blood Pressure Position Semi-Fowlers Blood Pressure Location Right Arm Pulse Ox Oxygen Delivery Method Oxygen Flow Rate (L/min) Weight Weight: 72.8 kg Body Mass Index (BMI) 21.7 EEG Results Procedure Details EEG Procedure Details: MARIA FERNANDA DENIS is a 68 year old M with a past medical history of , who presents for evaluation of Electroencephalogram on DATE at TIME NIHSS NIHSS Nursing Documentation NIHSS Nursing Documentation: NIHSS: Ischemic Stroke/TIA Start: 12/25/23 15:27 Text: For PCU Patients: NIH and Neuro Check every 4 Status: Active hours, PRN and with change in RN caregiver. Freq: [id number] Protocol: Activity Type Activity Date Activity User E-sign Co-sign Detail Recorded Client Recorded Date Recorded By Document 12/26/23 06:15 HJ [id number] 12/26/23 06:44 12/26/23 06:15 NIH Stroke Scale [NIHSS] A score of 0 is normal or asymptomatic . Total possible score is 42. Inpatient: RN or Physician to activate a stroke alert for onset of new stroke symptoms or with NIHSS increase >/= 3 points. Following change in neurological status, NIHSS will be performed per physician order or more frequently PRN. -1a. Level of Consciousness Not alert; Arouse to repeat stimuli or strong/pain stimuli if obtunded -1b. LOC Questions Answers neither question correctly. -1c. LOC Commands Performs neither task correctly. -2. Best Gaze Normal -3. Visual No visual loss -4. Facial Palsy Normal symmetrical movements -5a. Left Arm Some effort against gravity ; -5b. Right Arm Some effort against gravity ; -6a. Left Leg Some effort against gravity ; -6b. Right Leg Some effort against gravity ; -7. Limb Ataxia Absent -8. Sensory Normal; no sensory loss -9. Best Language Severe aphasia; -10. Dysarthria Severe dysarthria; -11. Extinction and Inattention No abnormality -Total 18 Query Text:A score of 0 is normal or asymptomatic. Total possible score is 42 . ED: Notify Physician for NIHSS increase by > / = 3 points. Inpatient: RN or Physician to activate a stroke alert for NIHSS increase of > / = 3 points. Coma Scale [Assess] -Eye Opening To Voice -Motor Localizes to Pain -Verbal Incomprehensibl e [Total] -Coma Scale Total 10 Physical Exam Narrative Pt confused, unable to answer questions. Intermittent R gaze with R head turn, then gaze and head turn would be midline When turning to the R pt was mute, unable to answer When midline pt was upset, combative, did not follow commands The L arm did not move much to noxious stimulation The R arm and b/l LE moved spontaneously in plane of bed. Lab / Micro Data 12/26/23 05:42 12/26/23 05:42 Labs: Laboratory Results - last 24 hr 12/25/23 13:01: POC Glucose 91 12/25/23 13:07: WBC 5.9, RBC 4.53 L, Hgb 12.3 L, Hct 37.9 L, MCV 83.7, MCH 27.2, MCHC 32.5, RDW Std Deviation 45.5 H, RDW Coeff of Amee 15.1 H, Plt Count 143 L, MPV 13.5 H, Immature Gran % (Auto) 0.500, Neut % (Auto) 54.8, Lymph % (Auto) 30.9, [place] % (Auto) 10.6 H, Eos % (Auto) 3.0, Baso % (Auto) 0.2, Absolute Neuts (auto) 3.3, Absolute Lymphs (auto) 1.83, Nucleated RBC % 0, PT 13.6, INR 1.0, APTT 27.9, Sodium 140, Potassium 4.0, Chloride 104, Carbon Dioxide 28.0, Anion Gap 8, BUN 31 H, Creatinine 1.37 H, Estim Creat Clear Calc 55.07, Est GFR (MDRD) Af Amer 66, Est GFR (MDRD) Non-Af 55 L, BUN/Creatinine Ratio 22.6 H, Glucose 112 H, Calcium 9.4, Total Bilirubin 0.40, Direct Bilirubin 0.11, AST 20, ALT 36, Alkaline Phosphatase 206 H, Troponin I High Sens 6, Total Protein 7.8, Albumin 3.4, Globulin 4.4 H, Valproic Acid 14 L 12/25/23 14:35: Ammonia 19.0 12/25/23 18:00: POC Glucose 105 12/25/23 23:51: POC Glucose 83 12/26/23 05:42: WBC 4.8, RBC 4.01 L, Hgb 10.9 L, Hct 32.9 L, MCV 82.0, MCH 27.2, MCHC 33.1, RDW Std Deviation 43.2, RDW Coeff of Amee 14.7 H, Plt Count 129 L, MPV 13.9 H, Immature Gran % (Auto) 0.400, Neut % (Auto) 65.9, Lymph % (Auto) 18.0 L, [place] % (Auto) 11.3 H, Eos % (Auto) 4.0, Baso % (Auto) 0.4, Absolute Neuts (auto) 3.2, Absolute Lymphs (auto) 0.86, Nucleated RBC % 0, Sodium 140, Potassium 3.7, Chloride 107, Carbon Dioxide 28.0, Anion Gap 5, BUN 24 H, Creatinine 0.94, Estim Creat Clear Calc 75.30, Est GFR (MDRD) Af Amer 102, Est GFR (MDRD) Non-Af 85, BUN/Creatinine Ratio 25.6 H, Glucose 114 H, Hemoglobin A1c 5.7 H, Calcium 8.7, Magnesium 1.6, Total Bilirubin 0.30, AST 22, ALT 29, Alkaline Phosphatase 185 H, Total Protein 6.6, Albumin 2.9 L, Globulin 3.7, Albumin/Globulin Ratio 0.8 L, Triglycerides 62, Cholesterol 110, LDL Cholesterol 58, VLDL Cholesterol 12, HDL Cholesterol 40, TSH 8.74 H 12/26/23 05:54: POC Glucose 105 12/26/23 08:12: POC Glucose 103 Imaging Radiology Impression Brain CT 12/25/23 13:03 IMPRESSION: No acute intracranial abnormality. Mild chronic ischemic change. N.B. : The above Results were Read Back by Shayan Bowen MD to Jasbir Melvin DO, and understanding confirmed on 12/25/2023 13:30:55 (ET). Electronically Signed: Shayan Bowen MD at 13:32 EDT , ADDENDUM: 12/25/23 1339 IMPRESSION: No acute intracranial abnormality. Mild chronic ischemic change. N.B. : The above Results were Read Back by Shayan Bowen MD to Jasbir Melvin DO, and understanding confirmed on 12/25/2023 13:30:55 (ET). Electronically Signed: Shayan Bowen MD at 13:32 EDT , Chest X-Ray 12/25/23 13:03 IMPRESSION: Degenerative changes, as described above. No demonstrated acute cardiopulmonary process. Electronically Signed: Cody Olguin MD at 15:23 EDT , Head/Neck CTA 12/25/23 13:04 IMPRESSION: 1. Head CTA: There is no demonstrated aneurysm of the algaaciq of [place]. There is no demonstrated thrombus or occlusion of the major intracranial arteries. No hemodynamically significant stenosis of the arteries of the algaaciq of [place] is demonstrated. 2. Neck CTA: Minimal atherosclerotic plaque of the left carotid bulb without luminal stenosis. The bilateral internal carotid arteries of the neck are widely patent N.B. : The above Results were Read Back by Cody Olguin MD to Jasbir Melvin DO, and understanding confirmed on 12/25/2023 13:54:23 (ET). Electronically Signed: Cody Olguin MD at 13:55 EDT , ADDENDUM: 12/25/23 1402 IMPRESSION: 1. Head CTA: There is no demonstrated aneurysm of the algaaciq of [place]. There is no demonstrated thrombus or occlusion of the major intracranial arteries. No hemodynamically significant stenosis of the arteries of the algaaciq of [place] is demonstrated. 2. Neck CTA: Minimal atherosclerotic plaque of the left carotid bulb without luminal stenosis. The bilateral internal carotid arteries of the neck are widely patent N.B. : The above Results were Read Back by Cody Olguin MD to Jabsir Melvin DO, and understanding confirmed on 12/25/2023 13:54:23 (ET). Electronically Signed: Cody Olguin MD at 13:55 EDT Reading Location ID and State: [facility] / [place] , Service support , Active Medications Active Medications Active Medications: Current Medications Generic Name Dose Route Start Last Admin Trade Name Freq PRN Reason Stop Dose Admin Acetaminophen 650 mg 12/25/23 15:27 Acetaminophen 325 Mg Tablet PO Q6H PRN PRN Pain 1-10 Or Fever >100.7 Albuterol Sulfate 2.5 mg 12/25/23 15:27 Albuterol 2.5 Mg/3 Ml Vial.Neb. INHALATION Q2H PRN PRN SOB &/OR WHEEZING Aspirin 81 mg 12/26/23 08:00 12/26/23 08:49 Aspirin E.C. 81 Mg Tablet PO Not Given DAILYCM IWONA Atorvastatin Calcium 80 mg 12/25/23 22:00 12/25/23 22:18 Atorvastatin Calcium 80 Mg Tablet PO Not Given QHS IWONA Benztropine Mesylate 1 mg 12/25/23 22:00 12/26/23 09:38 Benztropine 2 Mg Tablet PO Not Given BID IWONA Buspirone HCl 20 mg 12/25/23 22:00 12/26/23 06:02 Buspirone 5 Mg Tablet PO Not Given TID IWONA Clonazepam 2 mg 12/25/23 22:00 12/26/23 06:02 Clonazepam 1 Mg Tablet PO Not Given TID IWONA Divalproex Sodium 125 mg 12/25/23 22:00 12/26/23 09:38 Divalproex Sodium 125 Mg Tablet PO Not Given BID IWONA Hydralazine HCl 5 mg 12/25/23 15:27 Hydralazine 20 Mg/Ml Vial IV 12/26/23 15:27 Q30M PRN maintain BP parameters with HR <60 Sodium Chloride 250 mls @ 15 mls/hr 12/25/23 15:29 IV .[id number] PRN Additional IVPB Infusion Sodium Chloride 250 mls @ 15 mls/hr 12/25/23 15:29 IV .[id number] PRN Saline Flush Levetiracetam 750 mg/ Sodium 107.5 mls @ 420 mls/hr 12/26/23 22:00 Chloride IV Q12 [facility] Insulin Human Lispro 0 unit 12/26/23 06:00 12/26/23 06:02 Insulin Lispro 100 Unit/Ml Insuln.Pen SC Not Given Q6 [facility] Protocol Labetalol HCl 20 mg 12/25/23 13:03 Labetalol (Prefilled) 20 Mg/4 Ml IV 12/26/23 13:03 X1 PRN Blood Pressure Lactulose 30 gm 12/25/23 22:00 12/26/23 09:38 Lactulose 20 Gm/30 Ml Udc PO Not Given BID [facility] Lorazepam 1 mg 12/25/23 15:27 Lorazepam 2 Mg/Ml Syringe IV PRN PRN seizure activity Melatonin 3 mg 12/25/23 15:27 Melatonin 3 Mg Tablet PO QHS PRN PRN INSOMNIA Propranolol HCl 80 mg 12/26/23 10:00 12/26/23 09:41 Propranolol La 80 Mg Capsule PO Not Given DAILY [facility] Protocol Senna/Docusate Sodium 2 tablet 12/25/23 15:27 Senna/Docusate Sodium 1 Tablet PO BID PRN PRN Constipation Sodium Chloride 10 - 40 ml 12/25/23 15:29 12/26/23 08:48 0.9% Saline Lock 10 Ml Syringe IV 20 ml UD PRN Administration SALINE FLUSH
[2023-12-26] MEDS: LORazepam 2 MG/ML Syringe IV (11:08)
[2023-12-26 11:24] LABS: Bedside Glucose 92 mg/dL (74-106)
--- NOTE | 2023-12-26 11:37 | NURSING ---
12/26/23@1050- Dr. Rodriguez on tele neuro for c/s with pt. pt did have another seizure witnessed during assessment. ativan 2mg given per Dr. Rodriguez at 1108. Dr. Rodriguez request pt to tx to ICU for closer monitoring until bed available at [facility]. pt uncooperative and not following commands. garbled moans and words noted with painful stimuli and pt became aggressive toward nurse. transfer center updated at 1125. report called to Des RN on icu at 1108. Sudha AVILA and John NANOTECHNOLOGY ENGINEERING TECHNICIAN in route with pt to [facility]u5. pt on stepdown monitor for transport.
--- NOTE | 2023-12-26 13:58 | DS.PCM_ITS ---
Providers Date of Admission: 12/25/23 Date of Discharge: 12/26/23 Primary Care Physician: Dr. Nicola Frye MD Consultations 12/25/23 15:27 Consult: Tele-Neurology Routine Consulting Provider: [facility] Reason for Consult: Acute Ischemic Stroke/TIA ED f/u and seizure EMERGENT Consult: No MD Notified: Yes Date Notified: 12/25/23 Time Notified: 15:50 Method of Notification: Answering Service Nursing Unit Staff Notify [facility] of Tele-Neurology Consult: Yes Reason For Visit: ALT LOC, SEIZURE Diagnosis Discharge Diagnosis (1) Acute alteration in mental status: Status: Acute Code(s): R41.82 - Altered mental status, unspecified (2) Hx of schizophrenia: Status: Acute Code(s): Z86.59 - Personal history of other mental and behavioral disorders (3) Seizure: Status: Acute Code(s): R56.9 - Unspecified convulsions Plan Patient is a 68-year-old gentleman with history of schizophrenia currently resident is extended care facility was brought in to the emergency department with altered mental status. Patient has experienced multiple seizures following his admission. 1. Acute encephalopathy ?secondary to postictal state from status epilepticus 2. Status epilepticus ? Patient loaded with Keppra and lorazepam transferred to the intensive care unit Case discussed with Dr. Andree Rodriguez [facility] teleneurology. Patient will be transferred to [facility] pending bed availability. We also did discuss about having low threshold for intubation 3. Acute kidney injury ? Creatinine on admission was 1.37 improved with rehydration to 0.94 4. Diabetes mellitus type 2 ? Patient metformin held given impaired kidney function 5. Schizophrenia ? Discontinued patient psychotropic medications 6. Essential hypertension ? Patient is on lisinopril held given impaired kidney function 7. DVT prophylaxis ? Bilateral SCDs Medications at Discharge Home Medications aspirin 81 mg tablet,delayed release (Adult Aspirin Regimen) 81 mg PO DAILY 12/25/23 atorvastatin 20 mg tablet 20 mg PO DAILY 12/25/23 benztropine 1 mg tablet 1 mg PO BID 12/25/23 buspirone 10 mg tablet 20 mg PO TID 12/25/23 calcium carbonate (Calcium 500) 500 mg PO BID 12/25/23 cholecalciferol (vitamin D3) 50 mcg (2,000 unit) capsule 50 mcg PO DAILY 12/25/23 clonazepam 2 mg tablet (Klonopin) 2 mg PO TID 12/25/23 divalproex 125 mg tablet,delayed release 125 mg PO BID 12/25/23 furosemide 20 mg tablet 20 mg PO DAILY 12/25/23 haloperidol decanoate 100 mg/mL intramuscular solution (Haldol Decanoate) 150 mg IM Q14D 12/25/23 hydroxyzine pamoate 50 mg capsule 50 mg PO TID 12/25/23 lactulose 10 gram/15 mL oral solution (Enulose) 45 ml PO BID 12/25/23 lisinopril 5 mg tablet 5 mg PO DAILY 12/25/23 metformin 1,000 mg tablet 1,000 mg PO BID 12/25/23 nabumetone 500 mg tablet 500 mg PO BID 12/25/23 propranolol 80 mg capsule,24 hr,extended release 80 mg PO DAILY 12/25/23 trazodone 50 mg tablet 50 mg PO QHS 12/25/23 Hospital Course Summary of Care Provided Minutes Spent on Discharge: 35 Physical Exam Narrative GENERAL: Lethargic but arousable HEENT: Atraumatic; normocephalic EYES; Anicteric, Normal Conjunctiva NECK; supple, normal thyroid, RESPIRATORY: Diminished to auscultation CARDIOVASCULAR: Regular S1 S2, GI: soft, normoactive bowel sounds, : No Renal angle tenderness; EXTREMITIES: No edema, no clubbing, MUSCULOSKELETAL: no muscle wasting NEURO: no lateralizing signs. SKIN: No Rash Weight / BMI Weight Weight: 72.8 kg Body Mass Index (BMI) 21.7 ABG / Lab / Microbiology Data 12/26/23 05:42 12/26/23 05:42 Laboratory: Laboratory Results - last 24 hr 12/25/23 13:07: Total Bilirubin 0.40, Direct Bilirubin 0.11, AST 20, ALT 36, A lkaline Phosphatase 206 H, Total Protein 7.8, Albumin 3.4, Globulin 4.4 H, V alproic Acid 14 L 12/25/23 14:35: Ammonia 19.0 12/25/23 18:00: POC Glucose 105 12/25/23 23:51: POC Glucose 83 12/26/23 05:42: WBC 4.8, RBC 4.01 L, Hgb 10.9 L, Hct 32.9 L, MCV 82.0, MCH 27.2, MCHC 33.1, RDW Std Deviation 43.2, RDW Coeff of Amee 14.7 H, Plt Count 129 L, MPV 13.9 H, Immature Gran % (Auto) 0.400, Neut % (Auto) 65.9, Lymph % (Auto) 18.0 L, [place] % (Auto) 11.3 H, Eos % (Auto) 4.0, Baso % (Auto) 0.4, Absolute Neuts (auto) 3.2, Absolute Lymphs (auto) 0.86, Nucleated RBC % 0, Sodium 140, Potassium 3.7, Chloride 107, Carbon Dioxide 28.0, Anion Gap 5, BUN 24 H, Creatinine 0.94, Estim Creat Clear Calc 75.30, Est GFR (MDRD) Af Amer 102, Est GFR (MDRD) Non-Af 85, B UN/Creatinine Ratio 25.6 H, Glucose 114 H, Hemoglobin A1c 5.7 H, Calcium 8.7, Magnesium 1.6, Total Bilirubin 0.30, AST 22, ALT 29, Alkaline Phosphatase 185 H, Total Protein 6.6, Albumin 2.9 L, Globulin 3.7, Albumin/Globulin Ratio 0.8 L, Triglycerides 62, Cholesterol 110, LDL Cholesterol 58, VLDL Cholesterol 12, HDL Cholesterol 40, TSH 8.74 H 12/26/23 05:54: POC Glucose 105 12/26/23 08:12: POC Glucose 103 12/26/23 11:05: POC Glucose 92 Radiography Diagnostic Testing: Radiology Impression Chest X-Ray 12/25/23 13:03 IMPRESSION: Degenerative changes, as described above. No demonstrated acute cardiopulmonary process. Electronically Signed: Cody Olguin MD at 15:23 EDT Reading Location ID and State: [facility] / [place] , Service support , Head/Neck CTA 12/25/23 13:04 IMPRESSION: 1. Head CTA: There is no demonstrated aneurysm of the [place]. There is no demonstrated thrombus or occlusion of the major intracranial arteries. No hemodynamically significant stenosis of the arteries of the [place] is demonstrated. 2. Neck CTA: Minimal atherosclerotic plaque of the left carotid bulb without luminal stenosis. The bilateral internal carotid arteries of the neck are widely patent N.B. : The above Results were Read Back by Cody Olguin MD to Jasbir Melvin DO, and understanding confirmed on 12/25/2023 13:54:23 (ET). Electronically Signed: Cody Olguin MD at 13:55 EDT , ADDENDUM: 12/25/23 1402 IMPRESSION: 1. Head CTA: There is no demonstrated aneurysm of the [place]. There is no demonstrated thrombus or occlusion of the major intracranial arteries. No hemodynamically significant stenosis of the arteries of the [place] is demonstrated. 2. Neck CTA: Minimal atherosclerotic plaque of the left carotid bulb without luminal stenosis. The bilateral internal carotid arteries of the neck are widely patent N.B. : The above Results were Read Back by Cody Olguin MD to Jasbir Melvin DO, and understanding confirmed on 12/25/2023 13:54:23 (ET). Electronically Signed: Cody Olguin MD at 13:55 EDT , Meaningful Use Info Meaningful Use Meaningful Use Diagnoses (Choose all that apply): None applicable Ischemic Stroke Statin Dosing Therapy Reference: STATIN DOSE THERAPY REFERENCE: * Patients > 75 years receive moderate or high dose statin therapy. * Patients 75 years or YOUNGER should receive HIGH intensity statin dose unless contraindicated. You will be required to document reason for non-treatment if statin daily dose does not meet guidelines. HIGH DOSE STATIN THERAPY DAILY Atorvastatin > than or = to 40 mg Rosuvastatin > than or = to 20 mg Amlodipine + Atorvastatin > than or = to 2.5/40 mg Ezetimibe + Simvastatin 10/80 mg Simvastatin 80mg Discharge Plan Admission Admit Date/Time: 12/25/23 14:57 Attending Provider: Nasim Evans Primary Care Provider: Nicola Frye Consulting Providers: Javan Herman; Andree Rodriguez; Mikey Bryan; Lay Aguirre; Radha Giron; Nicole Jeter; Ramakrishna Graf; Cortney Castro; Valerie Francisco; Norm Valdes; Yadira Templeton; Abdelrahman Najera; Kevin Monreal; Baldemar Nieves; Stephen Thakkar; Drisssandro Escobar; Michael Jones; Julia Sparks; Alvin Marte; Leslye Metz; Jamel Alanis; Andressa Diggs; Orion Hogan; Srinivas Benson; MASOUD ARREOLA; Chris Flower; Rosanne Jerome Discharge Orders/Prescriptions Prescriptions: Continued aspirin [Adult Aspirin Regimen] 81 mg tablet,delayed release (DR/EC) 81 mg PO DAILY benztropine 1 mg tablet 1 mg PO BID Patient Comments: [NO ORIGINAL SIG] buspirone 10 mg tablet 20 mg PO TID Patient Comments: [NO ORIGINAL SIG] calcium carbonate [Calcium 500] 500 mg calcium (1,250 mg) tablet,chewable 500 mg PO BID divalproex 125 mg tablet,delayed release (DR/EC) 125 mg PO BID Patient Comments: [NO ORIGINAL SIG] haloperidol decanoate [Haldol Decanoate] 100 mg/mL solution 150 mg IM Q14D propranolol 80 mg capsule,extended release 24 hr 80 mg PO DAILY Patient Comments: [NO ORIGINAL SIG] clonazepam [Klonopin] 2 mg tablet 2 mg PO TID lactulose [Enulose] 10 gram/15 mL solution 45 ml PO BID Patient Comments: [NO ORIGINAL SIG] furosemide 20 mg tablet 20 mg PO DAILY Patient Comments: [NO ORIGINAL SIG] atorvastatin 20 mg tablet 20 mg PO DAILY Patient Comments: [NO ORIGINAL SIG] lisinopril 5 mg tablet 5 mg PO DAILY Patient Comments: [NO ORIGINAL SIG] metformin 1,000 mg tablet 1,000 mg PO BID Patient Comments: [NO ORIGINAL SIG] nabumetone 500 mg tablet 500 mg PO BID Patient Comments: [NO ORIGINAL SIG] trazodone 50 mg tablet 50 mg PO QHS Patient Comments: [NO ORIGINAL SIG] hydroxyzine pamoate 50 mg capsule 50 mg PO TID Patient Comments: [NO ORIGINAL SIG] cholecalciferol (vitamin D3) 50 mcg (2,000 unit) capsule 50 mcg PO DAILY Discontinued Shingrix Adjuvant Component-PF Suspension 0.5 ml IM DAILY Rx Instructions: UNTIL 02/02 Referrals / Follow Up: Nicola Frye MD [Primary Care Provider] - Within 2 Weeks Disposition Disposition (needs filled in before D/C Order can be placed): Acute Care Hospital Charges/Coding Visit Charges Inpatient E&M: 25681 Disch Hosp >30min
--- NOTE | 2023-12-26 14:47 | NURSING ---
[facility] called to get patient report. Given by this RN.
== END 2023-12-26 15:54 | disposition short-term general hospital (02) | DRG 53 ==
LOC: ED 14:19 → PCU 14:38 → ICU 12-26 12:06
PROVIDERS: Admitting Provider Internal Medicine; Emergency Provider Emergency Medicine; PCP Family Medicine; Visit Provider Internal Medicine
DX: G40.901 Epilepsy, unspecified, not intractable, with status epilepticus (principal); G93.40 Encephalopathy, unspecified; N17.9 Acute kidney failure, unspecified; E11.9 Type 2 diabetes mellitus without complications; F20.9 Schizophrenia, unspecified; I65.22 Occlusion and stenosis of left carotid artery; I10 Essential (primary) hypertension; G51.0 Bell's palsy; E78.00 Pure hypercholesterolemia, unspecified; Z79.82 Long term (current) use of aspirin; Z79.84 Long term (current) use of oral hypoglycemic drugs; Z86.59 Personal history of other mental and behavioral disorders
CPT/HCPCS: 36415; 70450; 70496; 70498; 71045; 80048; 80053; 80061; 80076; 80164; 82140; 82962; 83036; 83735; 84443; 84484; 85025; 85610; 85730; 93005; 95819; 99285; J7030; J7040; Q9967; A4216

== ENCOUNTER 2024-02-09 15:02 | Inpatient (IN) | payer MEDICAID, SELFPAY ==
[2024-02-09] VITALS (8 sets, daily range): BP systolic 115–184; BP diastolic 62–98; PULSE 48–66; RESP 15–21; TEMP 36.1–37; O2SAT 93–100; BMI 24.7; BMI 21.1
--- NOTE | 2024-02-09 15:19 | CT_ITS ---
STUDY: CT BRAIN WITHOUT CONTRAST REASON FOR EXAM: Male, 68 years old. ams RADIATION DOSAGE (If Supplied By Facility): CTDIvol = ( 44.99 ) mGy, DLP = ( 846.73 ) mGycm TECHNIQUE: Transaxial CT imaging of the brain was performed without administration of intravenous contrast material. Individualized dose optimization techniques were used for this CT. COMPARISON: December 25, 2023. FINDINGS: Normal soft tissue structures. Normal calvarium. Mild calcific plaquing of the cavernous carotid Mild atrophy and periventricular white matter ischemic changes. Normal basal ganglia and thalami. Normal brainstem. Normal cerebellum. There is no intracranial hemorrhage. There are no findings of an acute ischemic infarction. Mild mucosal thickening of left maxillary sinus. CT/Brain/Head without Contrast IMPRESSION: Mild atrophy and periventricular white matter ischemic changes. No acute bleed. If concern for acute infarct MRI recommended. Electronically Signed: Sharad Jacobson MD at 16:13 EDT ,
--- NOTE | 2024-02-09 15:22 | EKG12_ITS ---
Test Reason : ALT LOC Blood Pressure : / mmHG Vent. Rate : 054 BPM Atrial Rate : 054 BPM P-R Int : 164 ms QRS Dur : 102 ms QT Int : 416 ms P-R-T Axes : 048 -02 035 degrees QTc Int : 394 ms Sinus bradycardia Minor Nonspecific T wave abnormality Borderline Confirmed by Sheldon Agee ([id number]), continuity editor KORI YIN ([id number]) on 02/14/2024 10:24:14 AM Referred By: Confirmed By:Sheldon Agee
[2024-02-09 15:43] LABS: Absolute Neutrophil Count 3.3 X10^3/uL (2.0-7.7); Basophil# 0.02 X10^3/uL; Basophil% 0.3 % (0-1); Eosinophil# 0.32 X10^3/uL; Eosinophils% 5.2 % (0-5); Hematocrit 31.2 % (40-54); Hemoglobin 10.2 g/dL (13.0-16.5); Lymphocyte % 27.8 % (19-41); Mean Corp Hgb Conc 32.7 g/dL (32-36); Mean Corpuscular Hgb 27.6 pg (27.0-32.0); Mean Corpuscular Volume 84.3 fL (80-94); Monocyte% 11.5 % (0-10); NRBC Flagged by Analyzer 0 % (0-5); Neutrophil # 3.31 X10^3/uL (2.7-7.7); Neutrophil % 54.2 % (47-70); POSITIVE COUNT YES; Platelet Count 80 K/mm3 (150-450); RBC Distribution Width CV 17.6 % (11.6-14.6); RBC Distribution Width SD 52.6 fl (35.1-43.9); White Blood Count 6.1 K/mm3 (4.4-11.0)
--- NOTE | 2024-02-09 15:46 | EDS_ITS ---
HPI History of Present Illness Chief Complaint: Alt LOC Informant: EMS and SNF Narrative Narrative: 68-year-old male presenting to the emergency room with altered mental status. senior care reports that the patient seemed at baseline at 0900 hrs. during med Pass. He was reportedly found this afternoon unresponsive. Patient was recently admitted to this institution with altered mental status and transferred to [facility] due to seizures. There is a reported history of schizophrenia. Patient himself cannot provide me any information. He reportedly takes divalproex. He is also on Keppra. He takes lactulose for liver disease. No reported seizure activity for EMS or witnessed by SNF per reports. CODE STATUS states DNR comfort care but there is no formal paperwork accompanying him. [facility] Medical History (Updated 02/09/24 @ 16:[address] Jc Maddox DO) Epilepsy Cerebral atherosclerosis Sleep disorder Arthritis HTN (hypertension) Liver disease Diabetes Anxiety CHF (congestive heart failure) Seizure disorder Calcium deficiency Parkinson disease High cholesterol History of shingles Paranoid schizophrenia, chronic condition Home Medications ?Medication ?Instructions ?Recorded ?Last Taken ?Type benztropine 1 mg tablet 0.5 mg PO BID 12/25/23 Unknown History clonazepam 2 mg tablet (Klonopin) 2 mg PO TID 12/25/23 Unknown History divalproex 125 mg capsule,delayed 125 mg PO TID 02/09/24 Unknown History release sprinkle ipratropium 0.5 mg-albuterol 3 mg 3 ml inhalation Q6H PRN sob 02/09/24 Unknown History (2.5 mg base)/3 mL nebulization soln levetiracetam 100 mg/mL oral 1,500 mg PO Q12H 02/09/24 Unknown History solution lorazepam 2 mg/mL oral concentrate 0.5 mg PO Q2H PRN seizures or 02/09/24 Unknown History anxiety Allergy/AdvReac Type Severity Reaction Status Date / Time tuberculin, purified protein Allergy Unknown PT UNABLE Verified 02/09/24 15:05 deriva (From Aplisol) TO RESPOND-NEEDS F/U Social History Smoking Status: Unknown if ever smoked ROS ROS ED Review of Systems ROS Unobtainable: due to mental status EXAM Physical Exam Const Vital Signs: 02/09/24 15:05 02/09/24 17:00 Temperature 98.4 F Temperature Source Oral Pulse Rate 61 49 L Respiratory Rate 18 15 Blood Pressure 159/94 H 115/62 Blood Pressure Mean 115 79 Pulse Ox 99 93 Oxygen Delivery Method Room Air Room Air Positive well nourished and well developed General Appearance ED: well developed HEENT Reports normocephalic, head/scalp atraumatic and moist mucous membranes Eyes PERRL Eyes Narrative: Patient is observed moving his eyes left and right. He however does not follow commands when asked to open his eyes or follow my fingers Neck no lymphadenopathy, supple and no JVD Resp normal respiratory effort and clear to auscultation bilaterally Cardio regular rate, regular rhythm and no murmurs GI normal to inspection, nondistended, normoactive bowel sounds and non-tender Palpation: soft Back/Spine no CVA tenderness and normal ROM Extremity normal to inspection General Extremety ED: Negative for edema General Extremity: Negative for edema Neuro Neuro Narrative: Patient is nonverbal at this time. He is not following directions. He helped me lift his arm on the right and left side when I was placing the blood pressure cuff on and giving him a blanket. Sensorium / Orientation: alert Psych Psych Narrative: Unable to assess Skin no rashes or lesions noted and no wounds MDM MDM MDM Narrative Medical decision making narrative: Differential diagnosis includes but not limited to bacterial and viral infection electrolyte abnormalities dehydration stroke postictal state progression of liver disease with elevated ammonia exacerbation schizophrenia/mental health concerns Patient's white count is 6.1 with a hemoglobin of 10.2 which it does appear stable. His platelet count is 80. BMP with a BUN of 20 glucose is 81 normal lactic acid ammonia is normal lipase 19 normal LFTs. Urinalysis shows 4+ bacteria 5000 white cells positive nitrate positive leukocyte esterase 0-5 squamous cells. This will be sent for culture. Blood cultures were obtained. May depend interpretation of the chest x-ray is no acute process. CT the brain shows no acute findings. Patient received a dose of Rocephin. History & Record Review Discussion w/independent historian: EMS personnel Additional record(s) reviewed:: Prior inpatient record, Prior ED visit and Prior labs Lab Data Attestation: I reviewed the patient's lab results. Labs: Laboratory Results - last 24 hr 02/09/24 02/09/24 02/09/24 15:15 15:29 16:26 WBC 6.1 RBC 3.70 L Hgb 10.2 L Hct 31.2 L MCV 84.3 MCH 27.6 MCHC 32.7 RDW Std Deviation 52.6 H RDW Coeff of Amee 17.6 H Plt Count 80 L MPV TNP Immature Gran % (Auto) 1.000 H Neut % (Auto) 54.2 Lymph % (Auto) 27.8 [place] % (Auto) 11.5 H Eos % (Auto) 5.2 H Baso % (Auto) 0.3 Absolute Neuts (auto) 3.3 Absolute Lymphs (auto) 1.70 Nucleated RBC % 0 Differential Comment SCANNED Hypochromasia 1+ Target Cells 1+ Crenated Cell 1+ Schistocytes RARE PT 14.8 INR 1.2 APTT 25.4 Sodium 144 Potassium 4.1 Chloride 109 H Carbon Dioxide 29.0 Anion Gap 6 BUN 20 H Creatinine 1.00 Estim Creat Clear Calc 75.44 Est GFR (MDRD) Af Amer 95 Est GFR (MDRD) Non-Af 79 BUN/Creatinine Ratio 20.1 H Glucose 81 Lactic Acid 1.6 Calcium 8.9 Total Bilirubin 0.20 Direct Bilirubin 0.08 AST 17 ALT 15 L Alkaline Phosphatase 114 Ammonia < 10.0 L Troponin I High Sens 6 Total Protein 6.5 Albumin 2.2 L Globulin 4.3 H Lipase 19 Urine Color Yellow Urine Clarity Cloudy Urine pH 8.0 Ur Specific [place] 1.010 Urine Protein 30 H Urine Glucose (UA) Normal Urine Ketones Negative Urine Occult Blood 10 H Urine Nitrite Positive H Urine Bilirubin Negative Urine Urobilinogen Normal Ur Leukocyte Esterase 500 H Urine RBC 0-5 SEEN Urine WBC 50-100 SEEN Ur Squamous Epith Cells 0-5 SEEN Ur Transition Epith Cell 0-5 SEEN Triple Phos Crystals 1+ Urine Bacteria 4+ Urine Mucus 0 SEEN Valproic Acid 46 L Radiography Diagnostic Testing: Clinical Impression(s) from Imaging Studies Brain CT 02/09/24 15:19 IMPRESSION: Mild atrophy and periventricular white matter ischemic changes. No acute bleed. If concern for acute infarct MRI recommended. Electronically Signed: Sharad Jacobson MD at 16:13 EDT , Chest X-Ray 02/09/24 15:58 IMPRESSION: No acute cardiopulmonary pathology Electronically Signed: Sharad Jacobson MD at 16:15 EDT , EKG Initial EKG: Attestation: I personally reviewed and interpreted this EKG as follows: Comments: Sinus bradycardia ventricular rate of 54 bpm. Management Discussion w/another healthcare provider: Hospitalist (Dr Metz) Discharge Plan Triage Chief Complaint: Alt LOC ED Provider: Jc Maddox Dx/Rx/DC Orders Clinical Impression: Acute alteration in mental status, Hx of schizophrenia, Acute UTI, Thrombocytopenia Prescriptions: No Action benztropine 1 mg tablet 0.5 mg PO BID Patient Comments: [NO ORIGINAL SIG] clonazepam [Klonopin] 2 mg tablet 2 mg PO TID divalproex 125 mg capsule, delayed rel sprinkle 125 mg PO TID ipratropium-albuterol 0.5 mg-3 mg(2.5 mg base)/3 mL solution for nebulization 3 ml inhalation Q6H PRN (Reason: sob) levetiracetam 100 mg/mL solution 1,500 mg PO Q12H lorazepam 2 mg/mL concentrate 0.5 mg PO Q2H PRN (Reason: seizures or anxiety) Primary Care Provider: Nicola Frye Referrals: Nicola Frye MD [Primary Care Provider] - Print Language: Com[place]an
[2024-02-09 15:48] LABS: Differential Indicated SCAN CRITERIA MET
[2024-02-09 15:53] LABS: International Normalized Ratio 1.2; Partial Thromboplast Time 25.4 Seconds (24.1-36.2); Prothrombin Time (Protime)PT. 14.8 SECONDS (11.7-14.9)
--- NOTE | 2024-02-09 15:58 | RAD_ITS ---
STUDY: X-RAY CHEST REASON FOR EXAM: Male, 68 years old. cough TECHNIQUE: AP portable COMPARISON: December 25, 2023 FINDINGS: The lungs are clear and expanded. There is no demonstrated pleural abnormality. Normal size heart. Normal mediastinum and ciera. Normal visualized pulmonary arteries. Normal visualized aortic arch and descending thoracic aorta. Dorsal spine and shoulders demonstrate degenerative change. Normal visualized ribs, and clavicles There is no demonstrated abnormality of the visualized soft tissue structures of the upper abdomen. RAD/Chest 1 View (Portable) IMPRESSION: No acute cardiopulmonary pathology Electronically Signed: Sharad Jacobson MD at 16:15 EDT ,
[2024-02-09 16:00] LABS: Valproic Acid (Depakene) Level 46 ug/mL (50-100)
[2024-02-09 16:05] LABS: AST(SGOT) 17 U/L (15-37); Alanine Aminotransfer ALT/SGPT 15 U/L (16-61); Albumin, Serum 2.2 g/dL (3.2-5.0); Alkaline Phosphatase 114 U/L (45-117); Anion Gap 6 (5-15); BUN 20 mg/dL (7-18); BUN/Creat Ratio 20.1 RATIO (10-20); Bilirubin, Direct 0.08 mg/dL (0.00-0.30); Calcium,Total 8.9 mg/dL (8.5-10.1); Chloride 109 mmol/L (98-107); EST Glomerular Filtration Rate 79 mL/min (>60); Est Glom Filt Rate - Afr Amer 95 mL/min (>60); Estimated Creatinine Clearance 75.44 ml/min; Globulin 4.3 g/dL (2.2-4.2); Glucose 81 mg/dL (74-106); Lipase 19 U/L (13-75); Potassium 4.1 mmol/L (3.5-5.1); Protein, Total 6.5 g/dL (6.4-8.2); Sodium Level 144 mmol/L (136-145); Troponin-I HS 6 pg/mL (3.0-78.0)
[2024-02-09] MEDS: 0.9% Normal Saline (1000mL) 1,000 ML 1000 ML IV (16:06)
[2024-02-09 16:13] LABS: Crenated RBC 1+; Differential Comment SCANNED; Hypochromasia 1+; Schistocytes RARE; Target Cells 1+
[2024-02-09 16:22] LABS: Ammonia < 10.0 umol/L (11-32)
[2024-02-09 16:25] LABS: Lactic Acid 1.6 mmol/L (0.4-1.9)
[2024-02-09 16:34] LABS: Mucous, Urine 0 SEEN /hpf (<or=2+)
[2024-02-09 16:40] LABS: Color, Urine Yellow (Yellow); Glucose, Dipstick Normal (Normal); Ketone-Dipstick Negative (Negative); Leukocyte Esterase-Dipstick 500 /ul (Negative); Nitrite-Dipstick Positive (Negative); Occult Blood-Urine 10 /ul (Negative); Protein-Dipstick 30 mg/dl (Negative); Urine Bilirubin Dipstick Negative (Negative); Urine Clarity Cloudy (Clear); Urine Urobilinogen Normal (Normal)
[2024-02-09 16:53] LABS: Bacteria 4+ /hpf (None Seen); Red Blood Cells-Urine 0-5 SEEN /hpf (0-5); Squamous Epithelial Cells - UA 0-5 SEEN /hpf (0-5); Triple Phosphate Crystals Ur 1+ /hpf (<or=1+); White Blood Cells 50-100 SEEN /hpf (0-5)
[2024-02-09 16:54] LABS: Transitional Epithelial - Ur 0-5 SEEN /hpf (0-5)
[2024-02-09] MEDS: Ceftriaxone 1 GM/50 ML BAG IV (17:27)
--- NOTE | 2024-02-09 20:01 | HP.PCM.HOS_ITS ---
HPI - General General Date of Admission: 02/09/24 Date of Service: 02/09/24 Chief Complaint: Altered mental status HPI Narrative MARIA FERNANDA VEGA, is a 68 M who presented to the emergency department at [facility] on 02/09/2024 from [facility] with altered mental status. Patient does have a history of schizophrenia and has some behavioral issues related to this. He was recently admitted here in early December with altered mental status and ultimately transferred to [facility] due to seizures. He takes valproic acid on a regular basis and he is also on Keppra. He has a history of hyperammonemia related to his Depakote and is on chronic lactulose. The custodial reported that he seemed at baseline about 9 AM this morning during med Pass but was found this afternoon unresponsive. There was no seizure activity witnessed by EMS or at the F. He is awake and will look at me but not follow commands consistently and does not answer any questions at this time. Per son report with nursing staff he has been like this previously and then all of a sudden he will be okay so we are unclear if this is all metabolic or if there is some behavioral component to this as well. Vital signs on presentation showed a temperature of 98.4, heart rate 61, respiratory 18, blood pressure 159/94 and pulse ox was 99% on room air. His CBC shows a normal white count with a normal hemoglobin and thrombocytopenia. His thrombocytopenia is acute on chronic. Coags were normal. Chemistry panel showed normal electrolytes, normal renal function, lactic acid of 1.6, normal liver function, ammonia less than 10 and a lipase of 19. His urine does appear infected and he has positive nitrites, leuk esterase, white cells and 4+ bacteria. His valproic acid level was noted to be 46. CT of his brain showed mild atrophy and periventricular white matter ischemic changes but no acute findings. Chest x-ray demonstrated no acute cardiopulmonary pathology. Given his UA UTI is highly suspected. Urine and blood cultures were sent and he was on started on ceftriaxone. He was also given 1 L of IV fluids. FOR[facility]LY [facility], [facility] Medical History (Updated 02/09/24 @ 20:[address] Lazara Metz, ) Epilepsy Cerebral atherosclerosis Sleep disorder Arthritis HTN (hypertension) Liver disease Diabetes Anxiety CHF (congestive heart failure) Seizure disorder Calcium deficiency Parkinson disease High cholesterol History of shingles Paranoid schizophrenia, chronic condition Home Medications ?Medication ?Instructions ?Recorded ?Last Taken ?Type benztropine 1 mg tablet 0.5 mg PO BID 12/25/23 Unknown History clonazepam 2 mg tablet (Klonopin) 2 mg PO TID 12/25/23 Unknown History divalproex 125 mg capsule,delayed 125 mg PO TID 02/09/24 Unknown History release sprinkle ipratropium 0.5 mg-albuterol 3 mg 3 ml inhalation Q6H PRN sob 02/09/24 Unknown History (2.5 mg base)/3 mL nebulization soln levetiracetam 100 mg/mL oral 1,500 mg PO Q12H 02/09/24 Unknown History solution lorazepam 2 mg/mL oral concentrate 0.5 mg PO Q2H PRN seizures or 02/09/24 Unknown History anxiety Allergy/AdvReac Type Severity Reaction Status Date / Time tuberculin, purified protein Allergy Unknown PT UNABLE Verified 02/09/24 15:05 deriva (From Aplisol) TO RESPOND-NEEDS F/U unable to obtain unable to obtain Social History Smoking Status: Unknown if ever smoked Homelessness:: Unspecified (Unable to obtain) ROS Review of Systems ROS Unobtainable: due to mental status Vital Signs Vital Signs Vital Signs: 02/09/24 15:05 02/09/24 17:00 02/09/24 17:59 Temperature 98.4 F 98.4 F Temperature Source Oral Pulse Rate 61 49 L 50 L Respiratory Rate 18 15 18 Blood Pressure 159/94 H 115/62 149/76 H Blood Pressure Mean 115 79 100 Pulse Ox 99 93 98 Oxygen Delivery Method Room Air Room Air 02/09/24 18:01 02/09/24 19:01 Temperature 98.6 F 97 F L Temperature Source Axillary Axillary Pulse Rate 48 L 60 Respiratory Rate 18 21 H Blood Pressure 161/77 H 138/78 H Blood Pressure Mean 105 98 Pulse Ox 98 96 Oxygen Delivery Method Room Air Room Air Weight Weight: 82.7 kg Body Mass Index (BMI) 24.7 Physical Exam Const alert, no apparent distress, average body habitus and well nourished Constitutional Narrative: Awake older, -Mong[place]ian male, lying in left side-lying in bed, opens eyes but does not participate in exam or ask questions, does track me around the room General Appearance: uncooperative HEENT normocephalic and head/scalp atraumatic Eyes PERRL and conjunctivae normal Eyes Narrative: No scleral icterus Resp normal respiratory effort, no retractions, no use of accessory muscles and clear to auscultation bilaterally Auscultation: Negative for rales, rhonchi or wheezes Cardio regular rate, regular rhythm, S1 normal heart sound, S2 normal heart sound, no murmurs, no rub, no gallops and no clicks GI normal to inspection, nondistended, normoactive bowel sounds, soft to palpation and non-tender Extremity no clubbing, cyanosis or edema Extremity Narrative: Pedal pulses are 2+ bilaterally Skin Skin Narrative: Callus noted on medial hallux of the right foot Neuro Sensorium / Orientation: awake and alert Psych Psych Narrative: Unable to assess Results Lab / Micro Data 02/09/24 15:15 02/09/24 15:15 Labs: Laboratory Results - last 24 hr 02/09/24 15:15: WBC 6.1, RBC 3.70 L, Hgb 10.2 L, Hct 31.2 L, MCV 84.3, MCH 27.6, MCHC 32.7, RDW Std Deviation 52.6 H, RDW Coeff of Amee 17.6 H, Plt Count 80 L, MPV TNP, Immature Gran % (Auto) 1.000 H, Neut % (Auto) 54.2, Lymph % (Auto) 27.8, [place] % (Auto) 11.5 H, Eos % (Auto) 5.2 H, Baso % (Auto) 0.3, Absolute Neuts (auto) 3.3, Absolute Lymphs (auto) 1.70, Nucleated RBC % 0, Differential Comment SCANNED, Hypochromasia 1+, Target Cells 1+, Crenated Cell 1+, Schistocytes RARE, PT 14.8, INR 1.2, APTT 25.4, Sodium 144, Potassium 4.1, C hloride 109 H, Carbon Dioxide 29.0, Anion Gap 6, BUN 20 H, Creatinine 1.00, Estim Creat Clear Calc 75.44, Est GFR (MDRD) Af Amer 95, Est GFR (MDRD) Non-Af 79, BUN/Creatinine Ratio 20.1 H, Glucose 81, Calcium 8.9, Total Bilirubin 0.20, Direct Bilirubin 0.08, AST 17, ALT 15 L, Alkaline Phosphatase 114, Troponin I High Sens 6, Total Protein 6.5, Albumin 2.2 L, Globulin 4.3 H, Lipase 19 02/09/24 15:29: Lactic Acid 1.6, Ammonia < 10.0 L, Valproic Acid 46 L 02/09/24 16:26: Urine Color Yellow, Urine Clarity Cloudy, Urine pH 8.0, Ur Specific [place] 1.010, Urine Protein 30 H, Urine Glucose (UA) Normal, Urine Ketones Negative, Urine Occult Blood 10 H, Urine Nitrite Positive H, Urine Bilirubin Negative, Urine Urobilinogen Normal, Ur Leukocyte Esterase 500 H, Urine RBC 0-5 SEEN, Urine WBC 50-100 SEEN, Ur Squamous Epith Cells 0-5 SEEN, Ur Transition Epith Cell 0-5 SEEN, Triple Phos Crystals 1+, Urine Bacteria 4+, Urine Mucus 0 SEEN Micro: Microbiology 02/09/24 15:55 Mucosa - Nose SARS-CoV-2, Influenza & RSV (PCR) - Final Imaging Radiology Impression Brain CT 02/09/24 15:19 IMPRESSION: Mild atrophy and periventricular white matter ischemic changes. No acute bleed. If concern for acute infarct MRI recommended. Electronically Signed: Sharad Jacobson MD at 16:13 EDT , Chest X-Ray 02/09/24 15:58 IMPRESSION: No acute cardiopulmonary pathology Electronically Signed: Sharad Jacobson MD at 16:15 EDT , Assessment & Plan Assessment/Plan (1) Thrombocytopenia: (2) Abnormal urinalysis: (3) Toxic metabolic encephalopathy: PLAN: Plan Toxic/metabolic encephalopathy/altered LOC -Patient with seizure disorder however has no bites on his tongue or evidence of loss of bowel or bladder function -Unclear if this is behavioral or metabolic or related to recent seizure -Continue home antiepileptic medications -Patient does have an abnormal UA so we will treat -Ammonia level is normal -Patient intermittently will interact appropriately but not on a consistent basis -For example he held his arm out when they went to put his blood pressure cuff on -Consult neurology -Valproic acid level is slightly subtherapeutic -P.o. meds but no food until we can ensure that he is safe to eat -Will hydrate with LR at 75 cc/h until oral intake can be safely initiated Abnormal UA -UA is markedly abnormal and consistent with UTI -Culture is sent and pending -Blood culture sent and pending -Start ceftriaxone Thrombocytopenia -This appears to be new within the last few months -Coags are normal -Will check ultrasound of the abdomen to assess for liver disease or splenomegaly -Could potentially be medication induced as well -May need further workup depending on above findings History of seizure disorder -Continue home Keppra -Continue home Depakote -Continue home Klonopin -As needed Ativan available for seizure disorders -Will place on seizure precautions while hospitalized due to unclear history Paranoid schizophrenia -Continue home Cogentin -Continue home Klonopin -Continue home Depakote DM-2 -Patient takes no medications -Current blood sugar nonfasting on arrival is normal at 81 -Will hold SSI or Accu-Cheks for now and monitor blood sugar in a.m. DVT prophylaxis -Subcu Lovenox CODE STATUS -Paperwork is listed as DNR CC however patient transferred to the hospital and not hospice so I suspect the accurate CODE STATUS is DNR CCA with no intubation as they seem to want a pursue medical care -Unclear if there is a guardian or who makes medical decisions but this may need to be addressed further prior to discharge Charges/Coding Visit Charges Inpatient E&M: 19739 Init Hosp L2
[2024-02-09] MEDS: 0.9% Normal Saline (1000mL) 1,000 ML 75 ML IV (21:00)
[2024-02-09] MEDS: levETIRAcetam Oral Solution 500 MG/5 ML 1500 MG PO (22:43)
[2024-02-09] MEDS: clonazePAM 1 MG Tablet 2 MG PO (22:44)
[2024-02-09] MEDS: Divalproex Sodium 125 MG SPRINKLE PO (22:44)
[2024-02-09] MEDS: Benztropine Mesylate 0.5 MG TABLET PO (22:45)
[2024-02-10 05:41] VITALS: BP 161/88; PULSE 51; RESP 16; TEMP 36.6; O2SAT 98
[2024-02-10] MEDS: Divalproex Sodium 125 MG SPRINKLE PO ×3 (05:46→21:22)
[2024-02-10] MEDS: clonazePAM 1 MG Tablet 2 MG PO ×3 (05:49→21:22)
[2024-02-10 06:52] LABS: Absolute Lymphocyte Count 1.78 X10^3/uL (0.83-4.51); Absolute Neutrophil Count 3.6 X10^3/uL (2.0-7.7); Basophil# 0.02 X10^3/uL; Basophil% 0.3 % (0-1); Eosinophil# 0.34 X10^3/uL; Eosinophils% 5.1 % (0-5); Hematocrit 29.6 % (40-54); Hemoglobin 9.8 g/dL (13.0-16.5); Lymphocyte # 1.78 X10^3/ul (0.83-4.51); Lymphocyte % 26.6 % (19-41); Mean Corp Hgb Conc 33.1 g/dL (32-36); Mean Corpuscular Hgb 27.8 pg (27.0-32.0); Mean Corpuscular Volume 84.1 fL (80-94); Mean Platelet Vol. 12.6 fl (6.2-12.0); Monocyte# 0.91 X10^3/uL; Monocyte% 13.6 % (0-10); NRBC Flagged by Analyzer 0 % (0-5); Neutrophil # 3.61 X10^3/uL (2.7-7.7); Neutrophil % 53.8 % (47-70); Platelet Count 111 K/mm3 (150-450); RBC Distribution Width CV 17.8 % (11.6-14.6); RBC Distribution Width SD 52.5 fl (35.1-43.9); Red Blood Count 3.52 M/mm3 (4.6-6.2); White Blood Count 6.7 K/mm3 (4.4-11.0)
[2024-02-10 07:40] LABS: Anion Gap 5 (5-15); BUN 14 mg/dL (7-18); BUN/Creat Ratio 17.2 RATIO (10-20); Calcium,Total 8.8 mg/dL (8.5-10.1); Chloride 109 mmol/L (98-107); Creatinine, Serum 0.81 mg/dL (0.70-1.30); EST Glomerular Filtration Rate 100 mL/min (>60); Est Glom Filt Rate - Afr Amer 121 mL/min (>60); Estimated Creatinine Clearance 94.34 ml/min; Glucose 65 mg/dL (74-106); Magnesium 1.8 mg/dL (1.6-2.6); Phosphorus 3.1 mg/dL (2.5-4.9); Potassium 3.6 mmol/L (3.5-5.1); Sodium Level 142 mmol/L (136-145)
--- NOTE | 2024-02-10 08:05 | NURSING ---
pt refusing to go to US/radiology this am, pt combative, raising fists to staff and not allowing staff to take vitals or do assessment
--- NOTE | 2024-02-10 08:59 | CASEMGMT ---
Discharge Planning Call placed to Eric Moyer, legal guardian. He confirmed that the plan is for patient to return to [facility] ([facility]). SW updated. Vaishnavi Neri DC Planning Asst.
--- NOTE | 2024-02-10 09:49 | NURSING ---
just spoke w/Nedra from [facility] [phone] (and office#[phone]) she said it sounds like pt is at his baseline, that Hospice was consulted a few weeks ago for increase in seizures and family does not not want more testing done, they just want him comfortable family and hospice are aware of UTI and would like him sent back to [place]-Dr Garcia is agreeable to cancel neuro consult and ultrasound
[2024-02-10] MEDS: levETIRAcetam Oral Solution 500 MG/5 ML 1500 MG PO ×2 (10:29→21:19)
[2024-02-10] MEDS: Benztropine Mesylate 0.5 MG TABLET PO ×2 (10:29→21:22)
--- NOTE | 2024-02-10 10:43 | NURSING ---
pt has dc'd iv and refuses another
--- NOTE | 2024-02-10 14:30 | PCM.PROGNOTE ---
Subjective Subjective Patient seen and examined. He was alert. He had no active complaints. Review of systems otherwise negative. Objective Data Objective Data Vital Signs: Vital Signs Temp Pulse Resp BP Pulse Ox O2 Del Method 97.9 F 51 L 16 161/88 H 98 Room Air 02/10/24 05:41 02/10/24 05:41 02/10/24 05:41 02/10/24 05:41 02/10/24 05:41 02/10/24 05:41 Oxygen Delivery Method Room Air Weight: 173 lb 4.533 oz Body Mass Index (BMI) 21.1 Intake & Output: Intake and Output for Last 24 Hours 02/08/24 02/09/24 02/10/24 23:59 23:59 23:59 Intake Total 1050 / 1494 444 / 444 Output Total 500 / 1000 1500 / 1500 Balance 550 / 494 -1056 / -1056 Lab / Micro Data 02/10/24 06:20 02/10/24 06:20 Labs: Laboratory Results - last 24 hr 02/09/24 15:15: WBC 6.1, RBC 3.70 L, Hgb 10.2 L, Hct 31.2 L, MCV 84.3, MCH 27.6, MCHC 32.7, RDW Std Deviation 52.6 H, RDW Coeff of Amee 17.6 H, Plt Count 80 L, MPV TNP, Immature Gran % (Auto) 1.000 H, Neut % (Auto) 54.2, Lymph % (Auto) 27.8, Iron % (Auto) 11.5 H, Eos % (Auto) 5.2 H, Baso % (Auto) 0.3, Absolute Neuts (auto) 3.3, Absolute Lymphs (auto) 1.70, Nucleated RBC % 0, Differential Comment SCANNED, Hypochromasia 1+, Target Cells 1+, Crenated Cell 1+, Schistocytes RARE, PT 14.8, INR 1.2, APTT 25.4, Sodium 144, Potassium 4.1, Chloride 109 H, Carbon Dioxide 29.0, Anion Gap 6, BUN 20 H, Creatinine 1.00, Estim Creat Clear Calc 75.44, Est GFR (MDRD) Af Amer 95, Est GFR (MDRD) Non-Af 79, BUN/Creatinine Ratio 20.1 H, Glucose 81, Calcium 8.9, Total Bilirubin 0.20, Direct Bilirubin 0.08, AST 17, ALT 15 L, Alkaline Phosphatase 114, Troponin I High Sens 6, Total Protein 6.5, Albumin 2.2 L, Globulin 4.3 H, Lipase 19 02/09/24 15:29: Lactic Acid 1.6, Ammonia < 10.0 L, Valproic Acid 46 L 02/09/24 16:26: Urine Color Yellow, Urine Clarity Cloudy, Urine pH 8.0, Ur Specific [place] 1.010, Urine Protein 30 H, Urine Glucose (UA) Normal, Urine Ketones Negative, Urine Occult Blood 10 H, Urine Nitrite Positive H, Urine Bilirubin Negative, Urine Urobilinogen Normal, Ur Leukocyte Esterase 500 H, Urine RBC 0-5 SEEN, Urine WBC 50-100 SEEN, Ur Squamous Epith Cells 0-5 SEEN, Ur Transition Epith Cell 0-5 SEEN, Triple Phos Crystals 1+, Urine Bacteria 4+, Urine Mucus 0 SEEN 02/10/24 06:20: WBC 6.7, RBC 3.52 L, Hgb 9.8 L, Hct 29.6 L, MCV 84.1, MCH 27.8, MCHC 33.1, RDW Std Deviation 52.5 H, RDW Coeff of Amee 17.8 H, Plt Count 111 L, MPV 12.6 H, Immature Gran % (Auto) 0.600, Neut % (Auto) 53.8, Lymph % (Auto) 26.6, Iron % (Auto) 13.6 H, Eos % (Auto) 5.1 H, Baso % (Auto) 0.3, Absolute Neuts (auto) 3.6, Absolute Lymphs (auto) 1.78, Nucleated RBC % 0, Sodium 142, Potassium 3.6, Chloride 109 H, Carbon Dioxide 28.0, Anion Gap 5, BUN 14, Creatinine 0.81, Estim Creat Clear Calc 94.34, Est GFR (MDRD) Af Amer 121, Est GFR (MDRD) Non-Af 100, BUN/Creatinine Ratio 17.2, Glucose 65 L, Calcium 8.8, Phosphorus 3.1, Magnesium 1.8, TSH 4.020 H Micro: Microbiology 02/09/24 16:26 Urine, Catheterized Urine Culture - Preliminary Gram negative allie 02/09/24 15:55 Mucosa - Nose SARS-CoV-2, Influenza & RSV (PCR) - Final Radiography Diagnostic Testing: Radiology Impression Brain CT 02/09/24 15:19 IMPRESSION: Mild atrophy and periventricular white matter ischemic changes. No acute bleed. If concern for acute infarct MRI recommended. Electronically Signed: Sharad Jacobson MD at 16:13 EDT Reading Location ID and State: [facility] / [place] Tel [phone], Service support , Chest X-Ray 02/09/24 15:58 IMPRESSION: No acute cardiopulmonary pathology Electronically Signed: Sharad Jacobson MD at 16:15 EDT , Social Homelessness:: Unspecified (Unable to obtain) Physical Exam Const alert, oriented x3 and no apparent distress General Appearance: cooperative HEENT normocephalic, head/scalp atraumatic and moist oral mucous membranes Eyes PERRL and EOMs intact bilaterally Neck no lymphadenopathy and supple Lymph Lymphatic: no lymphadenopathy noted and no lymphedema noted Resp normal respiratory effort, normal air movement and clear to auscultation bilaterally Cardio regular rate, regular rhythm, S1 normal heart sound, S2 normal heart sound and no murmurs GI normal to inspection, nondistended, normoactive bowel sounds, soft to palpation, non-tender and non-distended Extremity normal capillary refill, no clubbing, cyanosis or edema and no calf tenderness General Extremity: no tenderness to palpation of joints or extremities Skin General Skin Exam: no breakdown Neuro CN's II-XII intact bilaterally, no focal motor deficits, no sensory deficits noted and deep tendon reflexes 2+ bilaterally Motor Exam: strength 5/5 throughout and general weakness Psych thought process normal Mood & Affect: flat affect Assessment & Plan Assessment/Plan (1) Abnormal urinalysis: (2) Toxic metabolic encephalopathy: PLAN: Plan # Acute encephalopathy thought to be due to UTI He does have a history of seizure disorders but did not look like he had had a seizure when he came in. He is much more alert today. He does respond to questions and had no complaints. Urinalysis showed evidence of UTI. Currently on IV ceftriaxone. Urine cultures pending. #History of seizures: On valproic acid, Depakote and Klonopin as well as Keppra Seizure precautions. #History of paranoid schizophrenia: On Cogentin and Klonopin #Type 2 diabetes mellitus: Diet controlled. Insulin sliding scale. Accuchecks ACHS. DVT prophylaxis: Lovenox CODE STATUS: DNR CCA no intubation. He does have a guardian who the nurse spoke with today and per the discussion, guardian does not want any aggressive workup and does not want any imaging done. Charges/Coding Visit Charges Inpatient E&M: 56136 Subs Hosp L2
--- NOTE | 2024-02-10 15:30 | CASEMGMT ---
Discharge Planning Updates faxed to [facility]. Fax confirmation rec'd. Vaishnavi Neri DC Planning Asst.
[2024-02-10 16:00] VITALS: BP 111/59; PULSE 86; RESP 18; TEMP 36.7; O2SAT 95
[2024-02-10 21:15] VITALS: BP 158/91; PULSE 55; RESP 20; TEMP 36.6; O2SAT 100
[2024-02-11 03:15] VITALS: BP 143/88; PULSE 66; RESP 16; TEMP 36.9; O2SAT 96
[2024-02-11] MEDS: clonazePAM 1 MG Tablet 2 MG PO ×2 (05:18→15:04)
[2024-02-11] MEDS: Divalproex Sodium 125 MG SPRINKLE PO (05:18)
[2024-02-11 07:07] LABS: Absolute Lymphocyte Count 1.94 X10^3/uL (0.83-4.51); Absolute Neutrophil Count 4.4 X10^3/uL (2.0-7.7); Basophil# 0.01 X10^3/uL; Basophil% 0.1 % (0-1); Eosinophil# 0.27 X10^3/uL; Eosinophils% 3.5 % (0-5); Hematocrit 28.9 % (40-54); Hemoglobin 9.4 g/dL (13.0-16.5); Lymphocyte # 1.94 X10^3/ul (0.83-4.51); Lymphocyte % 24.8 % (19-41); Mean Corp Hgb Conc 32.5 g/dL (32-36); Mean Corpuscular Hgb 27.7 pg (27.0-32.0); Mean Corpuscular Volume 85.3 fL (80-94); Mean Platelet Vol. 12.5 fl (6.2-12.0); Monocyte# 1.18 X10^3/uL; Monocyte% 15.1 % (0-10); NRBC Flagged by Analyzer 0 % (0-5); Neutrophil # 4.38 X10^3/uL (2.7-7.7); Platelet Count 124 K/mm3 (150-450); RBC Distribution Width SD 53.9 fl (35.1-43.9); Red Blood Count 3.39 M/mm3 (4.6-6.2); White Blood Count 7.8 K/mm3 (4.4-11.0)
[2024-02-11 07:36] LABS: Anion Gap 7 (5-15); BUN 8 mg/dL (7-18); BUN/Creat Ratio 7.4 RATIO (10-20); Calcium,Total 8.5 mg/dL (8.5-10.1); Chloride 106 mmol/L (98-107); Creatinine, Serum 1.08 mg/dL (0.70-1.30); EST Glomerular Filtration Rate 72 mL/min (>60); Est Glom Filt Rate - Afr Amer 87 mL/min (>60); Estimated Creatinine Clearance 70.76 ml/min; Glucose 162 mg/dL (74-106); Potassium 3.6 mmol/L (3.5-5.1); Sodium Level 138 mmol/L (136-145)
[2024-02-11 09:15] VITALS: BP 136/82; PULSE 73; RESP 18; TEMP 36.6; O2SAT 100
[2024-02-11] MEDS: levETIRAcetam Oral Solution 500 MG/5 ML 1500 MG PO (09:44)
[2024-02-11] MEDS: Benztropine Mesylate 0.5 MG TABLET PO (09:44)
--- NOTE | 2024-02-11 11:33 | DCINST_ITS ---
Discharge Instructions Diet Discharge Diet: Low fat / Low cholesterol Activity Discharge Activity: Return to Normal Activity Weight Bearing Status: Weight bearing as tolerated Dressing / Incision Call your doctor if you observe: Fever of 101 or Higher, Shortness of breath, Dizziness and Chest pain Follow Up Care Test Results: Test results from this visit will be discussed in further detail at your follow- up appointment, if applicable. Discharge Plan Admission Admit Date/Time: 02/09/24 20:07 Primary Reason for Your Visit: UTI Attending Provider: Rochelle Garcia Primary Care Provider: Nicola Frye Consulting Providers: Lazara Metz Instructions Patient Instructions: ED Urinary Tract Infections in Men Discharge Orders/Prescriptions Prescriptions: New cefdinir 300 mg capsule 300 mg PO Q12H Qty: 10 0RF Continued benztropine 1 mg tablet 0.5 mg PO BID Patient Comments: [NO ORIGINAL SIG] clonazepam [Klonopin] 2 mg tablet 2 mg PO TID divalproex 125 mg capsule, delayed rel sprinkle 125 mg PO TID ipratropium-albuterol 0.5 mg-3 mg(2.5 mg base)/3 mL solution for nebulization 3 ml inhalation Q6H PRN (Reason: sob) levetiracetam 100 mg/mL solution 1,500 mg PO Q12H lorazepam 2 mg/mL concentrate 0.5 mg PO Q2H PRN (Reason: seizures or anxiety) Referrals / Follow Up: Nicola Frye MD [Primary Care Provider] - Within 1 Week Disposition Disposition (needs filled in before D/C Order can be placed): NonSkilled NH/Intermed Care
--- NOTE | 2024-02-11 11:34 | PCM.DC.SUM ---
Providers Date of Admission: 02/09/24 Date of Discharge: 02/11/24 Primary Care Physician: Dr. Nicola Frye MD Reason For Visit: ALTERED MS / UTI Diagnosis Discharge Diagnosis (1) Abnormal urinalysis: Status: Acute Code(s): R82.90 - Unspecified abnormal findings in urine (2) Toxic metabolic encephalopathy: Status: Acute Code(s): G92.8 - Other toxic encephalopathy Plan # Acute encephalopathy thought to be due to UTI He does have a history of seizure disorders but did not look like he had had a seizure when he came in. He is much more alert today. He does respond to questions and had no complaints. Urinalysis showed evidence of UTI. Currently on IV ceftriaxone. Urine cultures pending. #History of seizures: On valproic acid, Depakote and Klonopin as well as Keppra Seizure precautions. #History of paranoid schizophrenia: On Cogentin and Klonopin #Type 2 diabetes mellitus: Diet controlled. Insulin sliding scale. Accuchecks ACHS. DVT prophylaxis: Lovenox CODE STATUS: DNR CCA no intubation. He does have a guardian who the nurse spoke with today and per the discussion, guardian does not want any aggressive workup and does not want any imaging done. Medications at Discharge Home Medications benztropine 1 mg tablet 0.5 mg PO BID 12/25/23 clonazepam 2 mg tablet (Klonopin) 2 mg PO TID 12/25/23 divalproex 125 mg capsule,delayed release sprinkle 125 mg PO TID 02/09/24 ipratropium 0.5 mg-albuterol 3 mg (2.5 mg base)/3 mL nebulization soln 3 ml inhalation Q6H PRN sob 02/09/24 levetiracetam 100 mg/mL oral solution 1,500 mg PO Q12H 02/09/24 lorazepam 2 mg/mL oral concentrate 0.5 mg PO Q2H PRN seizures or anxiety 02/09/24 cefdinir 300 mg capsule 300 mg PO Q12H #10 caps 02/11/24 Hospital Course Operations None Procedures None Summary of Care Provided Minutes Spent on Discharge: 55 Hospital Course: Patient is a 68-year-old male with a past medical history as outlined was admitted through the ED on 02/09/2024 for complaint of altered mental status. He was admitted from his correction. He had a history of schizophrenia with behavioral issues. He had recently been admitted in December 2023 for altered mental status and eventually transferred to [facility] on account of seizures. He took valproic acid and was also on Keppra. He was on lactulose on account of hyperammonemia related to his Depakote. He was found on the afternoon of admission unresponsive. There was no noted seizure activity. No arrival in the hospital he was alert but not really answering questions. Labs done were significant for thrombocytopenia which was acute on chronic. Lactic acid was 1.6 and lipase level was less than 10. Urine showed evidence of UTI. Valproic acid level was 46. CT of the brain showed no acute intracranial pathology. He was admitted and managed for altered mental status due to UTI. He was started on IV ceftriaxone. Urine cultures grew Proteus Mirabella's. This was sensitive to ceftriaxone. He remained stable and went to his baseline. He was discharged back to his detention facility on 02/11/2024. He was discharged with a prescription for p.o. cefdinir 300 mg twice daily for 5 days. He is follow-up with his primary care doctor within 1 to 2 weeks. Patient seen and examined prior to discharge. He had no active complaints and had an uneventful night. Review of systems otherwise negative. Labs and vitals reviewed. Home medication reviewed and reconciled. Physical Exam Const alert, no apparent distress and average body habitus Constitutional Narrative: flat affect General Appearance: cooperative Orientation / Consciousness: awake Exam Limitations: behavioral limitations HEENT normocephalic, head/scalp atraumatic, hearing grossly normal bilaterally and moist oral mucous membranes Mouth: oral and palatal mucosa normal Eyes PERRL, EOMs intact bilaterally and conjunctivae normal Neck no lymphadenopathy and supple Lymph Lymphatic: no lymphadenopathy noted and no lymphedema noted Resp normal respiratory effort, normal air movement, no retractions, no use of accessory muscles and clear to auscultation bilaterally Auscultation: Negative for rales, rhonchi or wheezes Cardio regular rate, regular rhythm, S1 normal heart sound, S2 normal heart sound, no murmurs, no rub, no gallops and no clicks GI normal to inspection, nondistended, normoactive bowel sounds, soft to palpation, non-tender and non-distended Extremity normal capillary refill, no clubbing, cyanosis or edema and no calf tenderness Extremity Narrative: Pedal pulses are 2+ bilaterally General Extremity: no tenderness to palpation of joints or extremities Skin General Skin Exam: no breakdown Neuro CN's II-XII intact bilaterally, no focal motor deficits, no sensory deficits noted and deep tendon reflexes 2+ bilaterally Sensorium / Orientation: awake and alert Motor Exam: strength 5/5 throughout and general weakness Psych Mood & Affect: flat affect Medical Records Data Homelessness:: Unspecified (Unable to obtain) Weight / BMI Weight Weight: 173 lb 4.533 oz Body Mass Index (BMI) 21.1 ABG / Lab / Microbiology Data 02/11/24 06:31 02/11/24 06:31 Laboratory: Laboratory Results - last 24 hr 02/11/24 06:31: WBC 7.8, RBC 3.39 L, Hgb 9.4 L, Hct 28.9 L, MCV 85.3, MCH 27.7, MCHC 32.5, RDW Std Deviation 53.9 H, RDW Coeff of Amee 18.0 H, Plt Count 124 L, MPV 12.5 H, Immature Gran % (Auto) 0.500, Neut % (Auto) 56.0, Lymph % (Auto) 24.8, Jenkins % (Auto) 15.1 H, Eos % (Auto) 3.5, Baso % (Auto) 0.1, Absolute Neuts (auto) 4.4, Absolute Lymphs (auto) 1.94, Nucleated RBC % 0, Sodium 138, Potassium 3.6, Chloride 106, Carbon Dioxide 25.0, Anion Gap 7, BUN 8, Creatinine 1.08, Estim Creat Clear Calc 70.76, Est GFR (MDRD) Af Amer 87, Est GFR (MDRD) Non-Af 72, BUN/Creatinine Ratio 7.4 L, Glucose 162 H, Calcium 8.5 Microbiology: Microbiology 02/09/24 16:26 Urine, Catheterized Urine Culture - Final Proteus mirabilis 02/09/24 15:55 Mucosa - Nose SARS-CoV-2, Influenza & RSV (PCR) - Final D/C Instructions Discharge Diet: Low fat / Low cholesterol Discharge Activity: Return to Normal Activity Weight Bearing Status: Weight bearing as tolerated Call your doctor if you observe: Fever of 101 or Higher, Shortness of breath, Dizziness and Chest pain Meaningful Use Info Meaningful Use Meaningful Use Diagnoses (Choose all that apply): None applicable Ischemic Stroke Statin Dosing Therapy Reference: STATIN DOSE THERAPY REFERENCE: * Patients > 75 years receive moderate or high dose statin therapy. * Patients 75 years or YOUNGER should receive HIGH intensity statin dose unless contraindicated. You will be required to document reason for non-treatment if statin daily dose does not meet guidelines. HIGH DOSE STATIN THERAPY DAILY Atorvastatin > than or = to 40 mg Rosuvastatin > than or = to 20 mg Amlodipine + Atorvastatin > than or = to 2.5/40 mg Ezetimibe + Simvastatin 10/80 mg Simvastatin 80mg Discharge Plan Admission Admit Date/Time: 02/09/24 20:07 Primary Reason for Your Visit: UTI Attending Provider: Rochelle Garcia Primary Care Provider: Nicola Frye Consulting Providers: Lazara Metz Instructions Patient Instructions: ED Urinary Tract Infections in Men Discharge Orders/Prescriptions Prescriptions: New cefdinir 300 mg capsule 300 mg PO Q12H Qty: 10 0RF Continued benztropine 1 mg tablet 0.5 mg PO BID Patient Comments: [NO ORIGINAL SIG] clonazepam [Klonopin] 2 mg tablet 2 mg PO TID divalproex 125 mg capsule, delayed rel sprinkle 125 mg PO TID ipratropium-albuterol 0.5 mg-3 mg(2.5 mg base)/3 mL solution for nebulization 3 ml inhalation Q6H PRN (Reason: sob) levetiracetam 100 mg/mL solution 1,500 mg PO Q12H lorazepam 2 mg/mL concentrate 0.5 mg PO Q2H PRN (Reason: seizures or anxiety) Referrals / Follow Up: Nicola Frye MD [Primary Care Provider] - Within 1 Week Disposition Disposition (needs filled in before D/C Order can be placed): Residential Facility Charges/Coding Visit Charges Inpatient E&M: 69534 Disch Hosp >30min
--- NOTE | 2024-02-11 12:24 | CASEMGMT ---
[place] [facility] [place]. Melissa to fax over copy of passr for new loc to be obtained. Vaishnavi Neri DC Planning Asst.
--- NOTE | 2024-02-11 13:04 | TREXTCAR_ITS ---
Diet Diet Order/Speech Therapy: 02/10/24 13:08 Diet: Regular - General Diet Comments: send pt soft foods edentulous and plastic wear Routine Orders/Code Status Enema Type: Fleetz Enema Frequency: Daily PRN Suppository Type: Dulcolax 10mg Suppository Frequency: Daily PRN O2 Frequency: PRN Keep PO Greater than or Equal to (%): 90 Therapies Weight Bearing: Weight bearing as tolerated Physical Therapy: Eval and Treat Occupational Therapy: Eval and Treat Problem/Diagnosis (1) Abnormal urinalysis: Status: Acute Code(s): R82.90 - Unspecified abnormal findings in urine (2) Toxic metabolic encephalopathy: Status: Acute Code(s): G92.8 - Other toxic encephalopathy Plan # Acute encephalopathy thought to be due to UTI * He does have a history of seizure disorders but did not look like he had had a seizure when he came in. He is much more alert today. He does respond to questions and had no complaints. * Urinalysis showed evidence of UTI. Currently on IV ceftriaxone. Urine cultures pending. #History of seizures: * On valproic acid, Depakote and Klonopin as well as Keppra * Seizure precautions. #History of paranoid schizophrenia: On Cogentin and Klonopin #Type 2 diabetes mellitus: Diet controlled. Insulin sliding scale. Accuchecks ACHS. DVT prophylaxis: Lovenox CODE STATUS: * DNR CCA no intubation. * He does have a guardian who the nurse spoke with today and per the discussion, guardian does not want any aggressive workup and does not want any imaging done. Allergies/Procedures Done in Hospital Allergies tuberculin, purified protein deriva (From Aplisol) Allergy (Unknown, Verified 02/09/24 15:05) PT UNABLE TO RESPOND-NEEDS F/U Procedures: None Type of Care/Length of Stay Estimated LOS: Convalescent Care Less Than 30 days Type of Care Needed: Skilled Rehab Potential: Fair Prognosis: Fair Additional Orders/Day of Discharge Day of Discharge: 02/11/24 Discharge Plan Admission Admit Date/Time: 02/09/24 20:07 Primary Reason for Your Visit: UTI Attending Provider: Rochelle Garcia Primary Care Provider: Nicola Frye Consulting Providers: Lazara Metz Instructions Patient Instructions: ED Urinary Tract Infections in Men Discharge Orders/Prescriptions Prescriptions: New cefdinir 300 mg capsule 300 mg PO Q12H Qty: 10 0RF Continued benztropine 1 mg tablet 0.5 mg PO BID Patient Comments: [NO ORIGINAL SIG] clonazepam [Klonopin] 2 mg tablet 2 mg PO TID divalproex 125 mg capsule, delayed rel sprinkle 125 mg PO TID ipratropium-albuterol 0.5 mg-3 mg(2.5 mg base)/3 mL solution for nebulization 3 ml inhalation Q6H PRN (Reason: sob) levetiracetam 100 mg/mL solution 1,500 mg PO Q12H lorazepam 2 mg/mL concentrate 0.5 mg PO Q2H PRN (Reason: seizures or anxiety) Referrals / Follow Up: Nicola Frye MD [Primary Care Provider] - Within 1 Week Disposition Disposition (needs filled in before D/C Order can be placed): [facility]
--- NOTE | 2024-02-11 13:20 | CASEMGMT ---
Addendum entered by Jesi Cruz 02/11/24 13:28: LOC submitted. LUCERO Carlisle Original Note: Social Work- SW spoke with [facility] to complete LOC questions. LUCERO Carlisle
--- NOTE | 2024-02-11 14:24 | CASEMGMT ---
Social Work LOC has been obtained.?Physician updated and pt is ready for discharge today.?DCA advised that pt is ready for d/c. Disposition:[facility], skilled level of care under intermediate level of care. LUCERO Carlisle
[2024-02-11 15:00] VITALS: BP 129/84; PULSE 77; RESP 16; TEMP 36.6; O2SAT 98
--- NOTE | 2024-02-11 15:14 | CASEMGMT ---
Discharge Planning Discharge orders, signed med list, loc, and transport time faxed to [facility]. Physicians will transport patient by cot at 4:30p. Nursing, SW, and patients legal guardian (Eric Wilferdolois) updated. Vaishnavi Neri DC Planning Asst.
--- NOTE | 2024-02-11 15:21 | NURSING ---
report called and given to Viral at [facility], pt to be picked up by [facility] around 163
--- NOTE | 2024-02-11 15:25 | CASEMGMT ---
Social Work LOC has been obtained.?Physician updated and pt is ready for discharge today.?DCA advised that pt is ready for d/c. Disposition:[facility], under intermediate level of care. LUCERO Carlisle
== END 2024-02-11 16:50 | DRG 463 ==
LOC: ED 16:11 → MS3 21:26
PROVIDERS: Admitting Provider Internal Medicine; Emergency Provider Emergency Medicine; PCP Family Medicine; Visit Provider Student in an Organized Health Care Education/Training Program
DX: N39.0 Urinary tract infection, site not specified (principal); G92.8 Other toxic encephalopathy; D69.6 Thrombocytopenia, unspecified; F20.0 Paranoid schizophrenia; G20.A1 Parkinson's disease without dyskinesia, without mention of fluctuations; I11.0 Hypertensive heart disease with heart failure; G40.909 Epilepsy, unspecified, not intractable, without status epilepticus; E11.9 Type 2 diabetes mellitus without complications; K76.9 Liver disease, unspecified; I50.9 Heart failure, unspecified; E78.00 Pure hypercholesterolemia, unspecified; Z66 Do not resuscitate; Z79.899 Other long term (current) drug therapy
CPT/HCPCS: 36415; 70450; 71045; 80048; 80076; 80164; 81001; 82140; 83605; 83690; 83735; 84100; 84443; 84484; 85025; 85610; 85730; 87040; 87077; 87086; 87088; 87186; 87631; 93005; 99285; J7030; A4216